=== PATIENT | female | born 1960 | race Caucasian/White ===

== ENCOUNTER 2020-08-28 00:20 | Observation (INO) | payer OTHER, SELFPAY ==
[2020-08-28] VITALS (14 sets, daily range): BP systolic 95–152; BP diastolic 56–83; PULSE 54–70; RESP 12–18; TEMP 36.7–37.1; O2SAT 95–99; BMI 31.6; BMI 29.9
--- NOTE | 2020-08-28 00:27 | ED.RN ---
NO OLD EKGS IN MUSE
--- NOTE | 2020-08-28 00:38 | CT_ITS ---
STUDY: CTA CHEST REASON FOR EXAM: Female, 60 years old. PE RADIATION DOSAGE (If Supplied By Facility): CTDIvol = ( 10.48 ) mGy, DLP = ( 367.32 ) mGycm TECHNIQUE: The examination was performed with the intravenous administration of IV 100mL Isovue-370. Post-processing of the angiographic images was performed, with multiplanar reformation and 3D reconstruction. Individualized dose optimization techniques were used for this CT. COMPARISON: None. FINDINGS: Normal enhancement of the main pulmonary artery and right and left pulmonary arteries. Normal enhancement of the bilateral peripheral pulmonary arteries. There is no demonstrated pulmonary embolism. Normal thoracic aorta and visualized great vessels. There is no demonstrated aortic dissection. Normal heart and pericardium. Normal mediastinum. Normal hilar regions. Normal visualized trachea and bronchi. The lungs are well expanded. Normal pulmonary parenchyma. Normal pleura. Normal chest wall structures. Normal osseous structures. Normal visualized upper abdomen. CT/CTA Chest W/WO Contrast IMPRESSION: Normal CTA chest examination, without a demonstrated pulmonary embolism or arterial dissection. Lungs are essentially clear. Electronically Signed: Alli Lopez DO at 2:10 EDT Tel , Service support ,
--- NOTE | 2020-08-28 00:39 | EKG12_ITS ---
Test Reason : CP Blood Pressure : / mmHG Vent. Rate : 053 BPM Atrial Rate : 053 BPM P-R Int : 152 ms QRS Dur : 072 ms QT Int : 496 ms P-R-T Axes : 040 -34 -24 degrees QTc Int : 465 ms Sinus bradycardia Left axis deviation Nonspecific T wave abnormality Prolonged QT Abnormal ECG Confirmed by GRABIEL FARIA, TIARRA ([id number]), school photograph editor SEJAL NIEVES ([id number]) on 08/29/2020 9:10:41 AM Referred By: LISA Confirmed By:TIARRA SPAIN MD
[2020-08-28 00:54] LABS: Absolute Neutrophil Count 8.8 X10^3/uL (2.0-7.7); Basophil# 0.03 X10^3/uL; Basophil% 0.3 % (0-1); Eosinophil# 0.02 X10^3/uL; Eosinophils% 0.2 % (0-5); Hematocrit 37.2 % (37-47); Lymphocyte % 9.7 % (19-41); Mean Corp Hgb Conc 32.3 g/dL (32-36); Mean Corpuscular Hgb 29.8 pg (27.0-32.0); Mean Corpuscular Volume 92.3 fL (81-99); Monocyte# 0.49 X10^3/uL; Monocyte% 4.7 % (0-10); NRBC Flagged by Analyzer 0 % (0-5); Neutrophil # 8.78 X10^3/uL (2.7-7.7); Neutrophil % 84.7 % (47-70); Platelet Count 386 K/mm3 (150-450); RBC Distribution Width CV 13.9 % (11.6-14.6); RBC Distribution Width SD 47.4 fl (35.1-43.9); Red Blood Count 4.03 M/mm3 (4.2-5.4); White Blood Count 10.4 K/mm3 (4.4-11.0)
--- NOTE | 2020-08-28 00:55 | ED.VIS.CHEST ---
HPI History of Present Illness Chief Complaint: Chest Pain Narrative Narrative: Patient presents with chest pain. 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 She recently had a visit to an emergency department in [place], she apparently had unremarkable cardiac work-up she was told to get an outpatient stress test. She has no back pain or tearing sensation she has no lower extremity edema or calf pain. She has no radiation of the pain. The pain starts in the epigastrium and does move somewhat in the chest. [facility] Medical History (Updated 08/28/20 @ 01:[address] Abdon Garrett MD) Chest pain CPAP (continuous positive airway pressure) dependence Depression Migraines Sleep apnea Home Medications esomeprazole magnesium [Nexium] 20 mg PO DAILY 08/28/20 [History Last Taken 08/27/20] fluoxetine 20 mg PO BID 08/28/20 [History Last Taken Unknown] Allergy/AdvReac Type Severity Reaction Status Date / Time No Known Allergies Allergy Verified 08/28/20 00:21 Social History Smoking Status: Never smoker ROS ROS ED ROS Narrative Past medical history: Reviewed, unremarkable Medications: Reviewed Social history: Noncontributory Family history: She has a strong family history of diabetes and cardiac disease. Review of systems: All systems negative except as indicated General: No fever Eyes: No visual changes ENT: No upper airway congestion, normal voice Neck: No neck pain Cardiovascular: Chest pain as in HPI Respiratory: No shortness of breath or cough Gastrointestinal: No abdominal pain, nausea vomiting or diarrhea Genitourinary: No dysuria Musculoskeletal: Denies myalgias no difficulty with ambulation Skin: No rash Neurological: No memory loss, confusion or any focal weakness Psych: No recent behavioral changes Hematologic: No easy bleeding or easy bruising EXAM Physical Exam Narrative Exam Narrative: Physical exam General: Well nourished, Well developed, No Acute Distress Head: Normocephalic, Atraumatic Eyes: Conjunctiva not pale ENT: Moist mucous membranes Neck: Supple, Nontender, No lymphadenopathy Cardiovascular: Regular rate, Regular rhythm. Some chest wall pain Respiratory: No distress, CTA bilaterally Abdomen: Soft, Nontender, Nondistended Back: Nontender, Normal Inspection. Negative for: CVA tenderness Extremities: Nontender, No edema Skin: Normal color, No rash Neurological: Alert, Normal Strength, Normal Sensation Psychological: Normal affect Const Vital Signs: 08/28/20 00:23 08/28/20 00:29 08/28/20 00:40 Temperature 98.1 F Temperature Source Oral Pulse Rate 59 L Respiratory Rate 18 Respiratory Effort Normal Non-Labored Respiratory Pattern Normal Blood Pressure 132/78 H Blood Pressure Mean 96 Pulse Ox 99 Oxygen Delivery Method Room Air Room Air 08/28/20 01:24 Temperature Temperature Source Pulse Rate 58 L Respiratory Rate 16 Respiratory Effort Respiratory Pattern Blood Pressure 129/81 H Blood Pressure Mean 97 Pulse Ox 98 Oxygen Delivery Method Room Air MDM MDM MDM Narrative Medical decision making narrative: Patient has a normal work-up however because risk factors second visit to the ED I will admit her for stress test in the morning. Lab Data Labs: Laboratory Results - last 24 hr 08/28/20 08/28/20 00:50 00:50 WBC 10.4 RBC 4.03 L Hgb 12.0 Hct 37.2 MCV 92.3 MCH 29.8 MCHC 32.3 RDW Std Deviation 47.4 H RDW Coeff of Michelle 13.9 Plt Count 386 MPV 10.0 Immature Gran % (Auto) 0.400 Neut % (Auto) 84.7 H Lymph % (Auto) 9.[address] [place] % (Auto) 4.7 Eos % (Auto) 0.2 Baso % (Auto) 0.3 Absolute Neuts (auto) 8.8 H Absolute Lymphs (auto) 1.00 Nucleated RBC % 0 Sodium 139 Potassium 3.3 L Chloride 109 H Carbon Dioxide 22.0 Anion Gap 8 BUN 21 H Creatinine 0.95 Estim Creat Clear Calc 47.52 Est GFR (MDRD) Af Amer 77 Est GFR (MDRD) Non-Af 64 BUN/Creatinine Ratio 22.1 H Glucose 137 H Calcium 9.1 Troponin I < 0.015 EKG Initial EKG: Comments: Sinus rhythm with a rate of 53. Normal TN interval. QTC is 465. T wave abnormality in the precordial leads. Otherwise unremarkable EKG Interpreted by emergency doctor Discharge Plan Triage Chief Complaint: Chest Pain ED Provider: Abdon Garrett Dx/Rx/DC Orders Clinical Impression: Chest pain Prescriptions: No Action esomeprazole magnesium [Nexium] 20 mg Capsule,Delayed Release(Dr/Ec) 20 mg PO DAILY RF: 0 fluoxetine 20 mg Capsule 20 mg PO BID RF: 0 Primary Care Provider: Donna Roth Referrals: Donna Roth [Primary Care Provider] - Disposition Disposition: Acute Care Hospital [facility]
[2020-08-28 01:11] LABS: Anion Gap 8 (5-15); BUN 21 mg/dL (7-18); BUN/Creat Ratio 22.1 RATIO (10-20); Calcium,Total 9.1 mg/dL (8.5-10.1); Chloride 109 mmol/L (98-107); Creatinine, Serum 0.95 mg/dL (0.55-1.02); EST Glomerular Filtration Rate 64 mL/min (>60); Est Glom Filt Rate - Afr Amer 77 mL/min (>60); Estimated Creatinine Clearance 47.52 ml/min; Glucose 137 mg/dL (74-106); Potassium 3.3 mmol/L (3.5-5.1); Sodium Level 139 mmol/L (136-145)
--- NOTE | 2020-08-28 01:52 | PCM.HP.STD ---
HPI - General HPI Narrative NKECHI BEDOYA, is a 60 F who presents to the ER with chest pain. Onset of this pain began 3 days ago when she sought medical care at the [facility] and was sent from the emergency room after 2 negative troponins. The patient states she has a history of a negative stress test approximately 2 years ago. 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 No shortness of breath no nausea or vomiting or diarrhea no fevers or chills. Admission for rule out cardiac etiology for chest pain was requested by ER physician. [facility] Medical History (Updated 08/28/20 @ 01:[address] Abdon Garrett MD) Chest pain CPAP (continuous positive airway pressure) dependence Depression Migraines Sleep apnea Home Medications esomeprazole magnesium [Nexium] 20 mg PO DAILY 08/28/20 [History Last Taken 08/27/20] fluoxetine 20 mg PO BID 08/28/20 [History Last Taken Unknown] Allergy/AdvReac Type Severity Reaction Status Date / Time No Known Allergies Allergy Verified 08/28/20 00:21 Social History Smoking Status: Never smoker ROS Constitutional Constitutional: Denies chills Eyes Eyes: Denies change in vision ENT HEENT: Denies abnormal hearing Cardiovascular Cardiovascular: Reports chest pain Respiratory/Chest Respiratory/Chest: Denies cough Gastrointestinal Gastrointestinal: Denies abdominal pain Genitourinary Genitourinary: Denies dysuria Musculoskeletal Musculoskeletal: Denies back pain Integumentary Integumentary: Denies lesions Neurologic Neurologic: Denies abnormal gait Psychiatric Psychiatric: Denies anxiety Vital Signs Vital Signs Vital Signs: 08/28/20 00:23 08/28/20 00:29 08/28/20 00:40 Temperature 98.1 F Temperature Source Oral Pulse Rate 59 L Respiratory Rate 18 Respiratory Effort Normal Non-Labored Respiratory Pattern Normal Blood Pressure 132/78 H Blood Pressure Mean 96 Pulse Ox 99 Oxygen Delivery Method Room Air Room Air 08/28/20 01:24 Temperature Temperature Source Pulse Rate 58 L Respiratory Rate 16 Respiratory Effort Respiratory Pattern Blood Pressure 129/81 H Blood Pressure Mean 97 Pulse Ox 98 Oxygen Delivery Method Room Air Lab / Micro Data Result Diagrams: 08/28/20 00:50 08/28/20 00:50 Labs: Laboratory Results - last 24 hr 05/11/21 05/11/21 00:50 00:50 WBC 10.4 RBC 4.03 L Hgb 12.0 Hct 37.2 MCV 92.3 MCH 29.8 MCHC 32.3 RDW Std Deviation 47.4 H RDW Coeff of Michelle 13.9 Plt Count 386 MPV 10.0 Immature Gran % (Auto) 0.400 Neut % (Auto) 84.7 H Lymph % (Auto) 9.7 L [place] % (Auto) 4.7 Eos % (Auto) 0.2 Baso % (Auto) 0.3 Absolute Neuts (auto) 8.8 H Absolute Lymphs (auto) 1.00 Nucleated RBC % 0 Sodium 139 Potassium 3.3 L Chloride 109 H Carbon Dioxide 22.0 Anion Gap 8 BUN 21 H Creatinine 0.95 Estim Creat Clear Calc 47.52 Est GFR (MDRD) Af Amer 77 Est GFR (MDRD) Non-Af 64 BUN/Creatinine Ratio 22.1 H Glucose 137 H Calcium 9.1 Troponin I < 0.015 Assessment & Plan Assessment/Plan (1) Chest pain: PLAN: Plan 1. Chest pain?admit patient progressive care unit, cycle cardiac enzymes, morphine, oxygen, nitroglycerin, aspirin as needed, will set up nuclear exercise stress test in the morning. 2. DVT prophylaxis?low molecular weight heparin Visit Charges OBSV E&M: 10318 Initial observation care L2
[2020-08-28] MEDS: Ondansetron 4 MG/2 ML Vial IV (03:45)
[2020-08-28] MEDS: Nitroglycerin (INPATIENT USE) 0.4 MG TAB.SUBL SL ×3 (04:12→04:25)
[2020-08-28] MEDS: proCHLORPERazine 10 MG/2 ML Vial IV (04:47)
[2020-08-28] MEDS: 0.9% Saline Lock 10 ML Syringe IV ×2 (04:49→14:05)
[2020-08-28 04:56] LABS: Anion Gap 7 (5-15); BUN 19 mg/dL (7-18); BUN/Creat Ratio 23.4 RATIO (10-20); Calcium,Total 8.7 mg/dL (8.5-10.1); Chloride 107 mmol/L (98-107); Cholesterol 236 mg/dL (200); Creatinine, Serum 0.81 mg/dL (0.55-1.02); EST Glomerular Filtration Rate 76 mL/min (>60); Est Glom Filt Rate - Afr Amer 92 mL/min (>60); Estimated Creatinine Clearance 55.73 ml/min; Glucose 109 mg/dL (74-106); High Density Lipoprotein 65 mg/dL; Potassium 3.6 mmol/L (3.5-5.1); Sodium Level 140 mmol/L (136-145); Triglycerides 61 mg/dL; Very Low Density Lipoprotein 12 mg/dL (5-40)
--- NOTE | 2020-08-28 05:53 | EKG12_ITS ---
Test Reason : AM EKG Blood Pressure : / mmHG Vent. Rate : 058 BPM Atrial Rate : 058 BPM P-R Int : 152 ms QRS Dur : 070 ms QT Int : 476 ms P-R-T Axes : 057 -35 -38 degrees QTc Int : 467 ms Sinus bradycardia Left axis deviation ST & T wave abnormality, consider anterior ischemia Prolonged QT Abnormal ECG Confirmed by GRABIEL FARIA, TIARRA ([id number]), film editor supervisor SEJAL NIEVES ([id number]) on 08/29/2020 9:20:45 AM Referred By: TIARRA LYONS Confirmed By:TIARRA SPAIN MD
--- NOTE | 2020-08-28 12:33 | STRESSREP_ITS ---
Stress Test Report Date: 08-28-2020 Procedure: Exercise tolerance test/imaging study Indications: Chest pain Consent: Per the patient Procedure: The patient exercised on a Brando protocol for 5 minutes and 47 seconds completing Stage I and 2 minutes and 47 seconds of Stage II achieving a peak heart rate of 133 bpm (83% predicted maximal heart rate) with a peak blood pressure 144/80 mmHg and a peak MET capacity of 7 METs. The baseline ECG demonstrated sinus rhythm; low voltage QRS; nonspecific T wave abnormality. The peak exercise ECG demonstrated no obvious ECG changes. There were no cardiac dysrhythmias pretest, during exercise, or recovery. The functional capacity was considered average. There was no complaint of chest discomfort during exercise or recovery. The examination was discontinued secondary to fatigue. Impression: 1. Technically adequate (percent predicted maximal heart rate greater than 85%) exercise tolerance test 2. Peak exercise ECG with no obvious ECG changes 3. There were no cardiac dysrhythmias pretest, during exercise, or recovery 4. Nuclear images pending Myocardial perfusion imaging study: Technique: The patient was injected with 12.0 mCi of technetium 99m Cardiolite and subsequently rest SPECT Cardiolite nuclear imaging was obtained in the horizontal long, vertical long, and short axis views. The patient exercised on a Brando protocol for 5 minutes and 47 seconds completing Stage I and 2 minutes and 47 seconds of Stage II achieving a peak heart rate of 133 bpm (83% predicted maximal heart rate) with a peak blood pressure 144/80 mmHg and a peak MET capacity of 7 METs. The patient was injected with 33.3 mCi of technetium 99m Cardiolite and subsequently stress SPECT Cardiolite nuclear imaging was obtained in the horizontal long, vertical long, and short axis views. A gated Cardiolite study at peak stress was obtained. Interpretation: Rest and stress SPECT Cardiolite nuclear imaging status post realignment, normalization, and attenuation correction, demonstrates at rest the appearance of a small area of subtle diminished tracer uptake in the distal anterior segm ents which appear to improve/normalize following stress. There is end systolic thickening and brightening. The gated Cardiolite study demonstrates myocardial thickening and inward wall motion. The reported LVEF is 75%. Impression: 1. Rest and stress SPECT Cardiolite nuclear imaging demonstrate myocardial perfusion changes at rest which appear to improve/normalize following stress appearing compatible with shifting soft tissue attenuation/artifact with no myocardial perfusion changes considered diagnostic for associated stress-induced moderate ischemia. 2. The gated Cardiolite study reports an LVEF of 75%. This note was generated with [employer] software. It may contain incorrect words, spelling, and punctuation that were not noted in checking the note before signing.
--- NOTE | 2020-08-28 13:05 | PCM.DC ---
Discharge Instructions Diet Discharge Diet: No restrictions Activity Discharge Activity: Return to Normal Activity Weight Bearing Status: Full weight bearing Follow Up Care Test Results: Test results from this visit will be discussed in further detail at your follow-up appointment, if applicable. Discharge Plan Admission Admit Date/Time: 08/28/20 02:09 Primary Reason for Your Visit: chest pain Attending Provider: Bigg Field Primary Care Provider: Donna Roth Instructions Patient Instructions: ED Chest Pain, Noncardiac Discharge Orders/Prescriptions Prescriptions: Continued esomeprazole magnesium [Nexium] 20 mg Capsule,Delayed Release(Dr/Ec) 20 mg PO DAILY RF: 0 fluoxetine 20 mg Capsule 20 mg PO BID RF: 0 Referrals / Follow Up: Donna Roth [Primary Care Provider] - In 1 Week Disposition Disposition (needs filled in before D/C Order can be placed): Home, self care
--- NOTE | 2020-08-28 14:01 | CASEMGMT ---
SW met w/pt in room briefly to give resources, as pt is listed as self pay. Pt confirms is self pay. SW gave pt information on 211, [facility] assist, list of [facility] Resources, prescription assist programs, dental clinics, [employer], and Jenny Sinha. No further needs, pt home today. YOSELIN Leach
--- NOTE | 2020-08-31 08:13 | DS.PCM_ITS ---
Providers Date of Admission: 08/28/20 Date of Discharge: 08/28/20 Primary Care Physician: Donna Roth Reason For Visit: CHESST PAIN Diagnosis Discharge Diagnosis (1) Chest pain: Status: Acute Code(s): R07.9 - Chest pain, unspecified Plan: 1. Musculoskeletal chest pain #2 GERD #3 chronic depression #4 obstructive sleep apnea Medications at Discharge Home Medications esomeprazole magnesium [Nexium] 20 mg PO DAILY 08/28/20 fluoxetine 20 mg PO BID 08/28/20 Hospital Course Operations None Procedures Nuclear stress test Summary of Care Provided Minutes Spent on Discharge: 30 Hospital Course: This 60-year-old white female was seen in the emergency room at [facility] with chief complaint of chest pain, work-up in the emergency room including cardiac enzymes was unremarkable. Chest x-ray did not show any acute process. Patient was placed and observation status on MedSurg 2, serial cardiac enzymes remained normal, patient underwent a nuclear stress test that was negative for reversible ischemia. On 08/28/2020, patient was seen and examined: On examination she appeared in good health and spirits, she does not appear to be in any distress. Vital signs as documented. Skin warm and dry and without overt rashes. Neck without JVD, thyroid appears normal, trachea is midline, neck is supple. Lungs clear, normal air movement was noted. Heart exam notable for regular rhythm, normal sounds and absence of murmurs, rubs or gallops. Abdomen unremarkable and without evidence of organomegaly, masses, or abdominal aortic enlargement, bowel sounds are present in all 4 quadrants, no abdominal tenderness was noted. Extremities nonedematous, no cyanosis was noted, no clubbing was noted. Neuro: Cranial nerves II through XII are grossly intact, no focal motor deficits were noted, sensation to light touch and pinprick is intact, motor exam 5/5 throughout. Psych: Patient is alert and oriented x3, she does not appear anxious or dep ressed, she does not appear agitated. Patient was discharged home in stable condition on 08/28/2020. ABG / Lab / Microbiology Data Result Diagrams: 08/28/20 00:50 08/28/20 04:30 D/C Instructions Discharge Diet: No restrictions Discharge Activity: Return to Normal Activity Weight Bearing Status: Full weight bearing Meaningful Use Info Meaningful Use Diagnoses (Choose all that apply): None applicable Discharge Plan Admission Admit Date/Time: 08/28/20 02:09 Primary Reason for Your Visit: chest pain Attending Provider: Bigg Field Primary Care Provider: Donna Roth Instructions Patient Instructions: ED Chest Pain, Noncardiac Discharge Orders/Prescriptions Prescriptions: Continued esomeprazole magnesium [Nexium] 20 mg Capsule,Delayed Release(Dr/Ec) 20 mg PO DAILY RF: 0 fluoxetine 20 mg Capsule 20 mg PO BID RF: 0 Referrals / Follow Up: Donna Roth [Primary Care Provider] - In 1 Week Disposition Disposition (needs filled in before D/C Order can be placed): Home, self care Visit Charges OBSV E&M: 43872 Observ/hosp same date L3
== END 2020-08-28 14:05 | disposition home or self-care (01) ==
LOC: ED 01:58 → ICU 04:45
PROVIDERS: Admitting Provider Family Medicine; Emergency Provider Emergency Medicine; PCP Family Medicine; Visit Provider Internal Medicine
DX: R07.89 Other chest pain (principal); G47.33 Obstructive sleep apnea (adult) (pediatric); R07.2 Precordial pain; F32.9 Major depressive disorder, single episode, unspecified; Z79.899 Other long term (current) drug therapy; K21.9 Gastro-esophageal reflux disease without esophagitis; R00.1 Bradycardia, unspecified; R94.31 Abnormal electrocardiogram [ECG] [EKG]
CPT/HCPCS: 71275; 78452; 80048; 80061; 84484; 85025; 93005; 93017; 96374; 96375; 99218; 99285; A9500; Q9967; A4216; G0378; J2405

== ENCOUNTER 2021-04-28 20:09 | Emergency (ER) | payer OTHER, SELFPAY ==
[2021-04-28 20:09] VITALS: BP 111/72; PULSE 59; RESP 15; TEMP 35.9; O2SAT 100; BMI 28.3
--- NOTE | 2021-04-28 20:40 | EKG12_ITS ---
Test Reason : SYNCOPE Blood Pressure : / mmHG Vent. Rate : 061 BPM Atrial Rate : 061 BPM P-R Int : 152 ms QRS Dur : 080 ms QT Int : 434 ms P-R-T Axes : 072 -47 068 degrees QTc Int : 436 ms Normal sinus rhythm Left anterior fascicular block T wave abnormality, consider anterior ischemia Abnormal ECG Confirmed by GRABIEL FARIA, TIARRA ([id number]), clinical editor ARDEN CHAVEZ ([id number]) on 04/30/2021 1:39:11 PM Referred By: BEN Confirmed By:TIARRA SPAIN MD
--- NOTE | 2021-04-28 20:41 | EDS_ITS ---
HPI History of Present Illness Chief Complaint: Syncope Informant: patient Narrative Narrative: 60-year-old female presenting to the emergency department following a syncopal/near syncopal episode. Patient states that she has been doing quite well today. She sat down and ate a [employer] sandwich. She began to have some abdominal discomfort and felt that she may have diarrhea. She went to the bathroom and had a lot of nausea and vomiting as well as some diarrhea. She started to feel lightheaded and started to go towards the door when she collapsed. She stood up again and collapsed again. During which point she states that she struck her right anterior wrist and now has tingling in her fingers. She states that her abdominal pain her nausea and her diarrhea sensation has resolved. She notes that EMS told her her heart rate and blood pressure were low and these have also resolved. 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 [facility] Medical History Chest pain CPAP (continuous positive airway pressure) dependence Depression Migraines Sleep apnea Home Medications fluoxetine 20 mg PO BID 08/28/20 [History Last Taken Unknown] Allergy/AdvReac Type Severity Reaction Status Date / Time No Known Allergies Allergy Verified 04/28/21 20:15 Social History Smoking Status: Never smoker [facility] ED Constitutional Constitutional ED: Denies chills or weight loss Eyes Eyes: Denies change in vision or diplopia ENT ENT ED: Denies ear pain, rhinorrhea or sore throat Cardiovascular Cardiovascular: Reports other Details: Syncope ; Denies chest pain, orthopnea, palpitations or racing heartbeat Respiratory/Chest Respiratory/Chest: Denies cough, dyspnea or orthopnea Gastrointestinal Gastrointestinal: Reports abdominal pain, diarrhea, nausea and vomiting Genitourinary Genitourinary ED: Denies dysuria, hematuria or urinary frequency Musculoskeletal Musculoskeletal: Denies arthralgias or myalgias Integumentary Denies abscess or rash Neurologic Neurologic: Denies headache(s) or weakness Psychiatric Psychiatric: Denies anxiety, depression, suicidal ideation or suicidal thoughts Endocrine Endocrinology: Denies polydipsia, polyphagia or polyuria Allergic/Immunologic Allergic/Immunologic ED: Denies mouth swelling, tongue swelling or urticaria EXAM Physical Exam Const Vital Signs: 04/28/21 20:09 04/28/21 20:15 Temperature 96.6 F L Temperature Source Temporal Pulse Rate 59 L Respiratory Rate 15 Respiratory Effort Normal Non-Labored Blood Pressure 111/72 Blood Pressure Mean 85 Pulse Ox 100 Oxygen Delivery Method Room Air Positive well nourished and well developed General Appearance ED: well developed HEENT Reports normocephalic, head/scalp atraumatic and moist mucous membranes Eyes PERRL and EOMs intact bilaterally Neck no lymphadenopathy, supple and no JVD Resp normal respiratory effort and clear to auscultation bilaterally Cardio regular rate, regular rhythm and no murmurs GI normal to inspection, nondistended, normoactive bowel sounds and non-tender Palpation: soft Back/Spine no CVA tenderness and normal ROM Extremity normal to inspection General Extremety ED: Negative for edema General Extremity: Negative for edema Neuro oriented x3 and CN's II-XII intact bilaterally Sensorium / Orientation: alert Motor Exam: strength 5/5 throughout Psych mental status grossly normal Mood & Affect: Negative for depressed or tearful Skin no rashes or lesions noted and no wounds MDM MDM MDM Narrative Medical decision making narrative: Basic blood work negative. Patient had no events on the monitor. She is feeling better. I believe that this was a vasovagal reaction. At this point patient will be discharged home. Return if worsening or concerns Lab Data Attestation: I reviewed the patient's lab results. Labs: Laboratory Results - last 24 hr 04/28/21 04/28/21 20:21 20:21 WBC 11.6 H RBC 4.26 Hgb 13.3 Hct 39.8 MCV 93.4 MCH 31.2 MCHC 33.4 RDW Std Deviation 45.2 H RDW Coeff of Michelle 13.2 Plt Count 395 MPV 10.2 Immature Gran % (Auto) 0.500 Neut % (Auto) 78.3 H Lymph % (Auto) 16.4 L [place] % (Auto) 3.9 Eos % (Auto) 0.6 Baso % (Auto) 0.3 Absolute Neuts (auto) 9.1 H Absolute Lymphs (auto) 1.90 Nucleated RBC % 0 Sodium 140 Potassium 4.2 Chloride 108 H Carbon Dioxide 22.0 Anion Gap 10 BUN 26 H Creatinine 1.22 H Estim Creat Clear Calc 38.78 Est GFR (MDRD) Af Amer 58 L Est GFR (MDRD) Non-Af 48 L BUN/Creatinine Ratio 21.3 H Glucose 192 H Calcium 9.6 Total Bilirubin 0.20 AST 22 ALT 27 Alkaline Phosphatase 71 Total Protein 7.1 Albumin 3.2 Globulin 3.9 Albumin/Globulin Ratio 0.8 L Lipase 129 EKG Initial EKG: Attestation: I personally reviewed and interpreted this EKG as follows: Comments: Normal sinus rhythm with a ventricular rate of 61 bpm Discharge Plan Triage Chief Complaint: Syncope ED Provider: Albert Walker Dx/Rx/DC Orders Clinical Impression: Vasovagal syncope, Vomiting and diarrhea Instructions: ED Fainting, Vagal Reaction, ED Vomiting (Adult) Prescriptions: No Action fluoxetine 20 mg Capsule 20 mg PO BID RF: 0 Primary Care Provider: Donna Roth Referrals: Donna Roth [Primary Care Provider] - 3-5 Days if not improving Disposition Disposition: Home, Self Care
[2021-04-28] MEDS: 0.9% Normal Saline 1,000 ML 1000 ML IV (20:48)
[2021-04-28] MEDS: Ondansetron 4 MG/2 ML Vial IV (20:49)
[2021-04-28 20:51] LABS: Absolute Neutrophil Count 9.1 X10^3/uL (2.0-7.7); Basophil# 0.04 X10^3/uL; Basophil% 0.3 % (0-1); Eosinophil# 0.07 X10^3/uL; Eosinophils% 0.6 % (0-5); Hematocrit 39.8 % (37-47); Hemoglobin 13.3 g/dL (12.0-15.0); Lymphocyte % 16.4 % (19-41); Mean Corp Hgb Conc 33.4 g/dL (32-36); Mean Corpuscular Hgb 31.2 pg (27.0-32.0); Mean Corpuscular Volume 93.4 fL (81-99); Mean Platelet Vol. 10.2 fl (6.2-12.0); Monocyte# 0.45 X10^3/uL; Monocyte% 3.9 % (0-10); NRBC Flagged by Analyzer 0 % (0-5); Neutrophil % 78.3 % (47-70); Platelet Count 395 K/mm3 (150-450); RBC Distribution Width CV 13.2 % (11.6-14.6); RBC Distribution Width SD 45.2 fl (35.1-43.9); Red Blood Count 4.26 M/mm3 (4.2-5.4); White Blood Count 11.6 K/mm3 (4.4-11.0)
[2021-04-28 21:04] LABS: ALB/GLOB Ratio 0.8 RATIO (0.9-2.4); AST(SGOT) 22 U/L (15-37); Alanine Aminotransfer ALT/SGPT 27 U/L (13-56); Albumin, Serum 3.2 g/dL (3.2-5.0); Alkaline Phosphatase 71 U/L (45-117); Anion Gap 10 (5-15); BUN 26 mg/dL (7-18); BUN/Creat Ratio 21.3 RATIO (10-20); Calcium,Total 9.6 mg/dL (8.5-10.1); Chloride 108 mmol/L (98-107); Creatinine, Serum 1.22 mg/dL (0.55-1.02); EST Glomerular Filtration Rate 48 mL/min (>60); Est Glom Filt Rate - Afr Amer 58 mL/min (>60); Estimated Creatinine Clearance 38.78 ml/min; Globulin 3.9 g/dL (2.2-4.2); Glucose 192 mg/dL (74-106); Lipase 129 U/L (73-393); Potassium 4.2 mmol/L (3.5-5.1); Protein, Total 7.1 g/dL (6.4-8.2); Sodium Level 140 mmol/L (136-145)
[2021-04-28 21:44] VITALS: BP 116/76; PULSE 73; RESP 18; O2SAT 98
== END 2021-04-28 21:49 | disposition home or self-care (01) ==
PROVIDERS: Emergency Provider Emergency Medicine; PCP Family Medicine; Visit Provider Emergency Medicine
DX: R55 Syncope and collapse (principal); R11.2 Nausea with vomiting, unspecified; R19.7 Diarrhea, unspecified
CPT/HCPCS: 80053; 83690; 85025; 87426; 93005; 96361; 96374; 99285; J2405

== ENCOUNTER 2021-06-03 23:39 | Emergency (ER) | payer OTHER, SELFPAY ==
[2021-06-03 23:42] VITALS: BP 127/97; BP 96/77; PULSE 56; PULSE 57; RESP 16; TEMP 36.2; O2SAT 100; O2SAT 98; BMI 28.4
[2021-06-04 00:16] VITALS: O2SAT 95
--- NOTE | 2021-06-04 00:16 | EKG12_ITS ---
Test Reason : DYSRHYTHMIA Blood Pressure : / mmHG Vent. Rate : 053 BPM Atrial Rate : 053 BPM P-R Int : 114 ms QRS Dur : 076 ms QT Int : 480 ms P-R-T Axes : 059 -39 -53 degrees QTc Int : 450 ms Sinus bradycardia Left axis deviation Low voltage QRS Nonspecific ST and T wave abnormality Abnormal ECG Confirmed by GRABIEL FARIA, TIARRA ([id number]), editor greeting card SEJAL NIEVES ([id number]) on 06/05/2021 11:47:52 AM Referred By: REZA Confirmed By:TIARRA SPAIN MD
--- NOTE | 2021-06-04 00:16 | RAD_ITS ---
STUDY: X-RAY CHEST REASON FOR EXAM: Female, 60 years old. chest pain TECHNIQUE: Single AP portable view of the chest. COMPARISON: None. FINDINGS: The lungs are clear and expanded. There is no demonstrated pleural abnormality. Normal size heart. Normal mediastinum and nicole. Normal visualized pulmonary arteries. Normal visualized aortic arch and descending thoracic aorta. Normal visualized thoracic spine. Normal visualized ribs, clavicles, and shoulders. There is no demonstrated abnormality of the visualized soft tissue structures of the upper abdomen. RAD/Chest 1 View (Portable) IMPRESSION: Normal x-ray examination of the chest. Electronically Signed: Jazmine Bolton MD at 0:33 EST ,
--- NOTE | 2021-06-04 00:17 | EDS_ITS ---
HPI History of Present Illness Chief Complaint: Syncope Informant: patient and EMS Onset/Context/Timing Onset: Today Worsened By: Nothing Relieved By: Nothing Associated Symptoms: Positive for Nausea and Dyspnea Narrative Narrative: Patient states about 4 hours ago she started having chest discomfort that is nonpleuritic, tightness, retrosternal without radiation. With having the discomfort she felt a little dyspneic. She has had this happen before, and in the past when she goes and lies down it helps and so she did that. She took a nap and then woke up with epigastric discomfort and nausea/vomiting. She continued to vomit a lot. This made her feel lightheaded. Vomiting was nonbloody nonbilious. She got up and passed out, she crawled out to a different room to get her boyfriend and states she passed out again. She says then EMS showed up. All of this has happened before. She was here in April after almost identical events, she has had negative cardiac work-ups, she takes [id number] Nexium for GERD and attributes all of this is likely being related, and she had a negative stress test less than 12 months ago. She is a non-smoker. EMS treated her with IV Zofran and some fluids, she is now asymptomatic. They also did an EKG which looks identical to ours, see below. Prior Similar Symptoms: Yes CVD Risk Factors: Positive for Family History 1' </=55; Negative for Hypertension, Diabetes, Hypercholesterolemia and Smoking PE Risk Factors: Negative for Recent Travel/Surgery, Recent Immobilization, Prior DVT or PE, Cancer and OCP + Smoking + >/=35 PFSH PFSH Medical History CPAP (continuous positive airway pressure) dependence Depression GERD (gastroesophageal reflux disease) Migraines Sleep apnea Home Medications fluoxetine 20 mg PO BID 08/28/20 [History Last Taken Unknown] Allergy/AdvReac Type Severity Reaction Status Date / Time No Known Allergies Allergy Verified 06/03/21 23:51 Social History Smoking Status: Never smoker ROS ROS ED Constitutional Constitutional ED: Denies chills or fever(s) Eyes Eyes: Denies change in vision or diplopia ENT ENT ED: Denies rhinorrhea or sore throat Cardiovascular Cardiovascular: Reports as per HPI and chest pain; Denies palpitations Respiratory/Chest Respiratory/Chest: Reports as per HPI and dyspnea; Denies cough Gastrointestinal Gastrointestinal: Reports as per HPI, abdominal pain, nausea and vomiting; Denies diarrhea Genitourinary Genitourinary ED: Denies dysuria or hematuria Musculoskeletal Musculoskeletal: Denies back pain or neck pain Integumentary Denies abscess or rash Neurologic Neurologic: Denies headache(s), paresthesias or weakness Psychiatric Psychiatric: Denies anxiety or suicidal thoughts EXAM Physical Exam Const Vital Signs: 06/03/21 23:42 06/03/21 23:54 06/04/21 00:16 Temperature 97.1 F L Temperature Source Temporal Pulse Rate 56 L Respiratory Rate 16 Respiratory Effort Normal Non-Labored Respiratory Pattern Normal Blood Pressure 96/77 Blood Pressure Mean 83 Pulse Ox 98 95 Oxygen Delivery Method Nasal Cannula Nasal Cannula Oxygen Flow Rate (L/min) 2 2 06/04/21 01:26 Temperature Temperature Source Pulse Rate 58 L Respiratory Rate 11 L Respiratory Effort Respiratory Pattern Blood Pressure 122/73 H Blood Pressure Mean 89 Pulse Ox 99 Oxygen Delivery Method Room Air Oxygen Flow Rate (L/min) Positive well nourished and well developed General Appearance ED: well developed and NAD HEENT Reports moist mucous membranes normocephalic and atraumatic Eyes PERRL and EOMs intact bilaterally Neck full ROM and supple Resp normal respiratory effort and clear to auscultation bilaterally Cardio regular rate, regular rhythm and no murmurs Rate: Negative for bradycardia or tachycardic GI non-tender and non-distended Auscultation: normoactive bowel sounds Palpation: soft Back/Spine no CVA tenderness General Back: other FROM Extremity normal to inspection General Extremety ED: Negative for edema, pulses abnormal or tenderness General Extremity: Negative for edema or pulses abnormal Neuro oriented x3, CN's II-XII intact bilaterally and no sensory deficits noted Sensorium / Orientation: awake and alert Motor Exam: strength 5/5 throughout Skin no rashes or lesions noted and no wounds Heart Score History: Moderately Suspicious ECG: Nonspecific Repolarization Risk Factors: 1 or 2 Risk Factors Troponin: </= Normal Limit Score: 3 MDM MDM MDM Narrative Medical decision making narrative: Labs are unremarkable including troponin. Her x-ray is normal. Her EKG is nonspecific, bradycardic when she first got here but that gradually improved, and she is asymptomatic with her heart rate in the 50s. She does not take any AV myla blockers. She has a left anterior fascicular block and nonspecific T wave flattening diffusely, but this is unchanged compared with her prior EKGs. Additionally, she had a similar episode that she was in the emergency department here with last August, she had CT angiography of the chest done showing no evidence of a pulmonary embolus or any other acute abnormality in the chest, so I do not think we need to rule her out for pulmonary embolus again now especially since she is bradycardic and does not have any signs or symptoms of a DVT or risk factors. Certainly possible this is all cardiac in etiology, differential includes a transient dysrhythmia, electrical block, or what I think more likely happened is that the discomfort and vomiting were more GI related, and in vomiting forcefully, she vagal'd. We monitored here in the emergency department, gave her some IV fluids, and did a 2-hour delta troponin which was also negative (both measurements < 3). She feels well now. I do not think she requires admission. She has a heart score 4, really mostly because of her stable nonspecific EKG and her age and the fact that she has family members with heart disease. With a negative stress test in the last 12 months I think she is stable to follow-up as an outpatient, she is in agreement with this. Lab Data Attestation: I reviewed the patient's lab results. Labs: Laboratory Results - last 24 hr 06/03/21 06/03/21 06/04/21 23:50 23:50 02:13 WBC 13.0 H RBC 4.31 Hgb 13.2 Hct 40.0 MCV 92.8 MCH 30.6 MCHC 33.0 RDW Std Deviation 44.1 H RDW Coeff of Michelle 12.8 Plt Count 392 MPV 10.1 Immature Gran % (Auto) 0.400 Neut % (Auto) 85.6 H Lymph % (Auto) 9.9 L [place] % (Auto) 3.5 Eos % (Auto) 0.3 Baso % (Auto) 0.3 Absolute Neuts (auto) 11.2 H Absolute Lymphs (auto) 1.29 Nucleated RBC % 0 Sodium 141 Potassium 3.9 Chloride 111 H Carbon Dioxide 21.0 Anion Gap 9 BUN 27 H Creatinine 1.11 H Estim Creat Clear Calc 42.63 Est GFR (MDRD) Af Amer 64 Est GFR (MDRD) Non-Af 53 L BUN/Creatinine Ratio 24.3 H Glucose 168 H Calcium 9.1 Troponin I High Sens < 3 L < 3 L Radiography Diagnostic Testing: Clinical Impression(s) from Imaging Studies Chest X-Ray 06/04/21 00:16 IMPRESSION: Normal x-ray examination of the chest. Electronically Signed: Jazmine Bolton MD at 0:33 EST , Rhythm Strip Rhythm Strip: Sinus Rhythm Rate: 71 Ectopy: None EKG Initial EKG: Attestation: I personally reviewed and interpreted this EKG as follows: Interpretation: Sinus Rhythm (53), No Acute Injury Pattern, LAFB and Non- Specific ST Changes (Diffuse T wave flattening with inversions in the precordium) Prior EKG tracings: available for review (04/2021) Prior: Unchanged Discharge Plan Triage Chief Complaint: Syncope ED Provider: Benitez Ken Dx/Rx/DC Orders Clinical Impression: Chest pain, Acute epigastric pain, Acute gastritis without hemorrhage, Vasovagal syncope Instructions: ED Chest Pain, Uncertain Cause, ED Fainting, Vagal Reaction Prescriptions: No Action fluoxetine 20 mg Capsule 20 mg PO BID RF: 0 Primary Care Provider: Donna Roth Referrals: Donna Roth [Primary Care Provider] - 3-5 Days (or when able to get appt) Disposition Disposition: Home, Self Care
[2021-06-04] MEDS: 0.9% Normal Saline 1,000 ML 150 ML IV (00:23)
[2021-06-04 00:38] LABS: Absolute Lymphocyte Count 1.29 X10^3/uL (0.83-4.51); Absolute Neutrophil Count 11.2 X10^3/uL (2.0-7.7); Basophil# 0.04 X10^3/uL; Basophil% 0.3 % (0-1); Eosinophil# 0.04 X10^3/uL; Eosinophils% 0.3 % (0-5); Hemoglobin 13.2 g/dL (12.0-15.0); Lymphocyte # 1.29 X10^3/ul (0.83-4.51); Lymphocyte % 9.9 % (19-41); Mean Corpuscular Hgb 30.6 pg (27.0-32.0); Mean Corpuscular Volume 92.8 fL (81-99); Mean Platelet Vol. 10.1 fl (6.2-12.0); Monocyte# 0.46 X10^3/uL; Monocyte% 3.5 % (0-10); NRBC Flagged by Analyzer 0 % (0-5); Neutrophil # 11.15 X10^3/uL (2.7-7.7); Neutrophil % 85.6 % (47-70); Platelet Count 392 K/mm3 (150-450); RBC Distribution Width CV 12.8 % (11.6-14.6); RBC Distribution Width SD 44.1 fl (35.1-43.9); Red Blood Count 4.31 M/mm3 (4.2-5.4)
[2021-06-04 00:53] LABS: Anion Gap 9 (5-15); BUN 27 mg/dL (7-18); BUN/Creat Ratio 24.3 RATIO (10-20); Calcium,Total 9.1 mg/dL (8.5-10.1); Chloride 111 mmol/L (98-107); Creatinine, Serum 1.11 mg/dL (0.55-1.02); EST Glomerular Filtration Rate 53 mL/min (>60); Est Glom Filt Rate - Afr Amer 64 mL/min (>60); Estimated Creatinine Clearance 42.63 ml/min; Glucose 168 mg/dL (74-106); Potassium 3.9 mmol/L (3.5-5.1); Sodium Level 141 mmol/L (136-145); Troponin-I HS < 3 pg/mL (3.0-54.0)
[2021-06-04 01:26] VITALS: BP 122/73; PULSE 58; RESP 11; O2SAT 99
[2021-06-04 02:47] LABS: Troponin-I HS < 3 pg/mL (3.0-54.0)
[2021-06-04 02:50] VITALS: BP 123/72; PULSE 62; RESP 12; O2SAT 98
== END 2021-06-04 03:00 | disposition home or self-care (01) ==
PROVIDERS: Emergency Provider Emergency Medicine; PCP Family Medicine; Visit Provider Emergency Medicine
DX: R07.9 Chest pain, unspecified (principal); R55 Syncope and collapse; R00.1 Bradycardia, unspecified; R10.13 Epigastric pain; R06.00 Dyspnea, unspecified; I44.4 Left anterior fascicular block; K29.00 Acute gastritis without bleeding; Z79.899 Other long term (current) drug therapy; K21.9 Gastro-esophageal reflux disease without esophagitis; F32.A Depression, unspecified; G47.30 Sleep apnea, unspecified
CPT/HCPCS: 71045; 80048; 84484; 85025; 93005; 99285

== ENCOUNTER 2021-08-23 01:15 | Emergency (ER) | payer OTHER, SELFPAY ==
[2021-08-23 01:16] VITALS: BP 129/77; PULSE 62; RESP 22; TEMP 36.5; O2SAT 100; BMI 27.3
--- NOTE | 2021-08-23 01:25 | EKG12_ITS ---
Test Reason : CP Blood Pressure : / mmHG Vent. Rate : 066 BPM Atrial Rate : 066 BPM P-R Int : 154 ms QRS Dur : 074 ms QT Int : 476 ms P-R-T Axes : 061 -50 -25 degrees QTc Int : 499 ms Normal sinus rhythm Left anterior fascicular block Nonspecific T wave abnormality Prolonged QT Abnormal ECG Confirmed by STAR FARIA, JESSICA ([id number]), supervising editor news reel SEJAL NIEVES ([id number]) on 08/26/2021 1:46:58 PM Referred By: LEELEE Confirmed By:JESSICA GRAVES MD
--- NOTE | 2021-08-23 01:34 | EX.ED.DYSGE1 ---
HPI History of Present Illness Chief Complaint: Abd Pain Narrative Narrative: Patient presents with via EMS with multiple somatic complaints ranging from chest pain, clamminess, and epigastric pain. She states she does have past medical history of GERD. She has had episodes in the past that are described more like panic attacks, but she feels epigastric pain and check sure that she is not having a heart attack. She states she last had an episode in May, then 3 weeks later had another episode. She has been having another attack that started at 6-6 30 last evening, greater than 7 hours ago. She states she began having midsternal chest pain and became very clammy. She briefly felt short of breath. Those symptoms have resolved. She began having epigastric pain and cramping which has also eased up. She had nausea and vomited twice without any blood in her emesis. She denies any diarrhea or other problems with bowel movements. No dysuria or hematuria. She states she has follow-up with her primary care physician for these episodes that have been happening since May, but has not been to see her yet. No exertional component. [facility] Medical History CPAP (continuous positive airway pressure) dependence Depression GERD (gastroesophageal reflux disease) Migraines Sleep apnea Home Medications fluoxetine 20 mg PO BID 08/28/20 [History Last Taken Unknown] Allergy/AdvReac Type Severity Reaction Status Date / Time No Known Allergies Allergy Verified 06/03/21 23:51 Social History Smoking Status: Never smoker ROS ROS ED ROS Narrative Constitutional: No fever, no chills. [place] clammy. HEENT: No sore throat. No neck pain. No loss of vision. No rhinorrhea. Cardiovascular: Positive chest pain. No palpitations. No pedal edema. Respiratory: No cough, mild shortness of breath-resolved. Abdominal: Positive epigastric abdominal pain. Positive nausea. 2 episodes of nonbloody vomiting. Genitourinary: No dysuria. No hematuria. Musculoskeletal: No myalgias. No arthralgias. Neurologic: No headaches. No dizziness. No lightheadedness. Skin: No rash. No change in color. Psychiatric: No depression. No anxiety. EXAM Physical Exam Narrative Exam Narrative: Afebrile. Vital signs noted. HEENT: Normocephalic. Atraumatic. PERRL, EOMI. Neck soft and supple. No point tenderness or step off. Cardiovascular: Regular rate and rhythm. No murmurs, rubs, or gallops appreciated. Respiratory: No tachypnea. Lungs clear to auscultation bilaterally. Gastrointestinal: Abdomen soft, nontender, with normoactive bowel sounds. No rebound or guarding. Neurological: Awake. Alert. Nonfocal, nonlateralizing. Skin: No rash. Normal color. No pallor. Musculoskeletal: No pedal edema. Full range of motion extremities. Const Vital Signs: 08/23/21 01:16 Temperature 97.7 F L Temperature Source Oral Pulse Rate 62 Respiratory Rate 22 H Blood Pressure 129/77 H Blood Pressure Mean 94 Pulse Ox 100 Oxygen Delivery Method Room Air MDM MDM MDM Narrative Medical decision making narrative: Chest pain and pancreatitis work-up was pursued given her epigastric pain. Her EKG demonstrates normal sinus rhythm at 66 bpm without ectopy or acute ST changes. No STEMI. No significant change from previous. Chest x-ray as read by myself/emergency physician shows no evidence of acute cardiopulmonary process, no pneumonia, no pneumothorax. CBC shows normal white count of 9.9, hemoglobin normal at 12.7 with hematocrit normal at 38.6. Electrolyte panel shows potassium slightly low at 3.3, lipase normal at 188. Chloride slightly low at 111. Glucose normal at 87. High-sensitivity troponin is less than 3. This is greater than a 3-hour troponin and hence I do feel that she has been ruled out by biomarkers for acute coronary syndrome/[place]. At this point in time, upon repeat examination, she is resting comfortably. Her vital signs appear normalized. There is no tachypnea. I do feel that part of her symptomatology may be related to panic attacks. She will be discharged to follow-up with her primary care physician. She states she has an appointment on Thursday, 3 days from now. Return instructions to the emergency department were reviewed. Disposition is discharged home in stable condition. Lab Data Attestation: I reviewed the patient's lab results. Labs: Laboratory Results - last 24 hr 08/23/21 08/23/21 01:37 01:37 WBC 9.9 RBC 4.15 L Hgb 12.7 Hct 38.6 MCV 93.0 MCH 30.6 MCHC 32.9 RDW Std Deviation 46.5 H RDW Coeff of Michelle 13.7 Plt Count 477 H MPV 9.8 Immature Gran % (Auto) 0.300 Neut % (Auto) 81.5 H Lymph % (Auto) 12.9 L [place] % (Auto) 4.5 Eos % (Auto) 0.4 Baso % (Auto) 0.4 Absolute Neuts (auto) 8.1 H Absolute Lymphs (auto) 1.28 Nucleated RBC % 0 Sodium 143 Potassium 3.3 L Chloride 111 H Carbon Dioxide 25.0 Anion Gap 7 BUN 28 H Creatinine 0.91 Estim Creat Clear Calc 51.35 Est GFR (MDRD) Af Amer 80 Est GFR (MDRD) Non-Af 66 BUN/Creatinine Ratio 30.6 H Glucose 87 Calcium 9.2 Total Bilirubin 0.20 AST 22 ALT 27 Alkaline Phosphatase 72 Troponin I High Sens < 3 L Total Protein 7.2 Albumin 3.4 Globulin 3.8 Albumin/Globulin Ratio 0.9 Lipase 188 Radiography Chest X-Ray - ED: Read by ED Physician Diagnostic Testing: Clinical Impression(s) from Imaging Studies Chest X-Ray 08/23/21 01:40 IMPRESSION: No acute cardiopulmonary process. Electronically Signed: Moris Huang MD at 1:58 EDT , Discharge Plan Triage Chief Complaint: Abd Pain ED Provider: Alexandr Wade Dx/Rx/DC Orders Clinical Impression: Chest pain, Epigastric pain, Panic attack Instructions: ED Chest Pain, Noncardiac, ED Panic Attack, ED Epigastric Pain Uncertain Cause Prescriptions: No Action fluoxetine 20 mg Capsule 20 mg PO BID RF: 0 Primary Care Provider: Donna Roth Referrals: Donna Roth [Primary Care Provider] - As soon as possible Disposition Disposition: Home, Self Care
--- NOTE | 2021-08-23 01:40 | RAD_ITS ---
STUDY: X-RAY CHEST REASON FOR EXAM: Female, 61 years old. chest pain TECHNIQUE: 1 view COMPARISON: 06/04/2021 FINDINGS: Cardiomediastinal silhouette is unremarkable. Costophrenic angles are sharp. Lungs are clear. The trachea is midline. There is no pneumothorax. The bones are grossly intact. RAD/Chest 1 View (Portable) IMPRESSION: No acute cardiopulmonary process. Electronically Signed: Moris Huang MD at 1:58 EDT ,
[2021-08-23 02:00] LABS: Absolute Lymphocyte Count 1.28 X10^3/uL (0.83-4.51); Absolute Neutrophil Count 8.1 X10^3/uL (2.0-7.7); Basophil# 0.04 X10^3/uL; Basophil% 0.4 % (0-1); Eosinophil# 0.04 X10^3/uL; Eosinophils% 0.4 % (0-5); Hematocrit 38.6 % (37-47); Hemoglobin 12.7 g/dL (12.0-15.0); Lymphocyte # 1.28 X10^3/ul (0.83-4.51); Lymphocyte % 12.9 % (19-41); Mean Corp Hgb Conc 32.9 g/dL (32-36); Mean Corpuscular Hgb 30.6 pg (27.0-32.0); Mean Platelet Vol. 9.8 fl (6.2-12.0); Monocyte# 0.45 X10^3/uL; Monocyte% 4.5 % (0-10); NRBC Flagged by Analyzer 0 % (0-5); Neutrophil % 81.5 % (47-70); Platelet Count 477 K/mm3 (150-450); RBC Distribution Width CV 13.7 % (11.6-14.6); RBC Distribution Width SD 46.5 fl (35.1-43.9); Red Blood Count 4.15 M/mm3 (4.2-5.4); White Blood Count 9.9 K/mm3 (4.4-11.0)
[2021-08-23 02:21] LABS: ALB/GLOB Ratio 0.9 RATIO (0.9-2.4); AST(SGOT) 22 U/L (15-37); Alanine Aminotransfer ALT/SGPT 27 U/L (13-56); Albumin, Serum 3.4 g/dL (3.2-5.0); Alkaline Phosphatase 72 U/L (45-117); Anion Gap 7 (5-15); BUN 28 mg/dL (7-18); BUN/Creat Ratio 30.6 RATIO (10-20); Calcium,Total 9.2 mg/dL (8.5-10.1); Chloride 111 mmol/L (98-107); Creatinine, Serum 0.91 mg/dL (0.55-1.02); EST Glomerular Filtration Rate 66 mL/min (>60); Est Glom Filt Rate - Afr Amer 80 mL/min (>60); Estimated Creatinine Clearance 51.35 ml/min; Globulin 3.8 g/dL (2.2-4.2); Glucose 87 mg/dL (74-106); Lipase 188 U/L (73-393); Potassium 3.3 mmol/L (3.5-5.1); Protein, Total 7.2 g/dL (6.4-8.2); Sodium Level 143 mmol/L (136-145); Troponin-I HS (w/2H Reflex) < 3 pg/mL (3.0-54.0)
[2021-08-23 02:38] VITALS: BP 109/65; PULSE 71; RESP 19; O2SAT 97
[2021-08-23 04:04] LABS: Reflex Troponin-HS? (from REC) Y
== END 2021-08-23 02:43 | disposition home or self-care (01) ==
PROVIDERS: Emergency Provider Emergency Medicine; PCP Family Medicine; Visit Provider Emergency Medicine
DX: R07.9 Chest pain, unspecified (principal); R11.2 Nausea with vomiting, unspecified; R10.13 Epigastric pain; F41.0 Panic disorder [episodic paroxysmal anxiety]; K21.9 Gastro-esophageal reflux disease without esophagitis; F32.A Depression, unspecified; G47.30 Sleep apnea, unspecified; Z79.899 Other long term (current) drug therapy
CPT/HCPCS: 71045; 80053; 83690; 84484; 85025; 93005; 99285

== ENCOUNTER 2022-01-08 23:26 | Observation (INO) | payer OTHER, SELFPAY ==
[2022-01-08 23:33] VITALS: BP 102/65; PULSE 52; RESP 17; TEMP 36.4; O2SAT 100; BMI 26.5
--- NOTE | 2022-01-08 23:44 | EKG12_ITS ---
Test Reason : RHYTHM CHANGE Blood Pressure : / mmHG Vent. Rate : 051 BPM Atrial Rate : 051 BPM P-R Int : 138 ms QRS Dur : 074 ms QT Int : 494 ms P-R-T Axes : 078 -16 007 degrees QTc Int : 455 ms Sinus bradycardia Low voltage QRS Nonspecific T wave abnormality Abnormal ECG When compared with ECG of 09-JAN-2022 12:25, MANUAL COMPARISON REQUIRED, DATA IS UNCONFIRMED Confirmed by STAR FARIA, JESSICA ([id number]), editor map SEJAL NIEVES ([id number]) on 01/14/2022 1:06:04 PM Referred By: BROOKLYNN Confirmed By:JESSICA GRAVES MD
--- NOTE | 2022-01-08 23:44 | RAD_ITS ---
STUDY: X-RAY CHEST REASON FOR EXAM: Female, 61 years old patient with chest pain. TECHNIQUE: Single AP portable view of the chest. COMPARISON: Chest radiograph dated 08/23/2021. FINDINGS: Cardiac monitoring leads are present. The lungs are clear and under expanded. There is no demonstrated pleural abnormality. Normal size heart. Normal mediastinum and nicole. Normal visualized pulmonary arteries. There is atherosclerotic calcification of the aortic arch with tortuosity. Normal visualized thoracic spine. Normal visualized ribs, clavicles, and shoulders. There is no demonstrated abnormality of the visualized soft tissue structures of the upper abdomen. RAD/Chest 1 View (Portable) IMPRESSION: No radiographic evidence of acute cardiopulmonary disease. Electronically Signed: Mckayla Perry MD at 0:33 EDT ,
--- NOTE | 2022-01-08 23:47 | EDS_ITS ---
HPI History of Present Illness Chief Complaint: Chest Pain Detail of Chief Complaint: Patient complains of upper abdomen pain and chest pain Informant: patient Narrative Narrative: Patient presents to the emergency department complaint of upper abdomen and chest pain us around 6 PM. Patient states that she was not feeling well and had a headache today. Patient then took 3 Excedrin migraine tablets. Patient then ate a sandwich and then subsequently developed this chest pain. Patient denies any radiation of the pain. She describes a pressure and a dull discomfort retrosternally. She has upper abdomen discomfort and frequent belching. She does have family history of heart disease but she herself is not had heart trouble. Patient denies recent travel or surgery. Patient did have COVID-19 3 weeks ago. Prior similar symptoms: Yes PFSH PFSH Medical History (Updated 01/09/22 @ 06:[address] Felicia Aguilar, DO) CPAP (continuous positive airway pressure) dependence Depression GERD (gastroesophageal reflux disease) Migraines Sleep apnea Home Medications esomeprazole magnesium 40 mg capsule,delayed release 40 mg PO DAILY 01/08/22 [History Last Taken Unknown] fluoxetine 20 mg capsule 40 mg PO DAILY 01/08/22 [History Last Taken Unknown] Allergy/AdvReac Type Severity Reaction Status Date / Time No Known Allergies Allergy Verified 01/08/22 23:36 Surgical History (Updated 01/08/22 @ 23:38 by Trenton De Jesus) Hx of foot surgery Social History Smoking Status: Never smoker ROS ROS ED Review of Systems ROS Unobtainable: other Constitutional Constitutional ED: Reports lethargy; Denies chills, fever(s), sweats or weight loss Eyes Eyes: Denies blurry vision, change in vision or diplopia ENT ENT ED: Denies rhinorrhea or sore throat Cardiovascular Cardiovascular: Reports chest pain; Denies orthopnea or racing heartbeat Respiratory/Chest Respiratory/Chest: Denies cough, dyspnea, dyspnea on exertion, orthopnea or sputum Gastrointestinal Gastrointestinal: Reports abdominal pain; Denies diarrhea, nausea or vomiting Genitourinary Genitourinary ED: Denies dysuria, hematuria or urinary frequency Musculoskeletal Musculoskeletal: Denies arthralgias, back pain, myalgias or neck pain Integumentary Denies abscess, Abrasions or rash Neurologic Neurologic: Denies headache(s) or weakness Psychiatric Psychiatric: Denies anxiety, depression or suicidal thoughts Endocrine Endocrinology: Denies polydipsia, polyphagia or polyuria Hematologic/Lymphatic Hematologic/Lymphatic: Denies easy bleeding, easy bruising or lymphadenopathy Allergic/Immunologic Allergic/Immunologic ED: Denies mouth swelling, tongue swelling or urticaria EXAM Physical Exam Const Vital Signs: 01/08/22 23:33 01/08/22 23:39 01/09/22 00:03 Temperature 97.5 F L Temperature Source Temporal Pulse Rate 52 L Respiratory Rate 17 Respiratory Effort Normal Respiratory Pattern Normal Blood Pressure 102/65 Blood Pressure Mean 77 Pulse Ox 100 Oxygen Delivery Method Room Air Room Air 01/09/22 02:21 01/09/22 03:34 01/09/22 05:00 Temperature Temperature Source Pulse Rate 72 74 Respiratory Rate 16 19 H 19 H Respiratory Effort Respiratory Pattern Blood Pressure 131/69 H 121/85 H Blood Pressure Mean 89 97 Pulse Ox 100 98 Oxygen Delivery Method Room Air Room Air 01/09/22 04:00 Temperature Temperature Source Pulse Rate 57 L Respiratory Rate 17 Respiratory Effort Respiratory Pattern Blood Pressure 129/85 H Blood Pressure Mean 99 Pulse Ox 98 Oxygen Delivery Method Room Air Positive well nourished and well developed General Appearance ED: well developed and NAD HEENT Reports TM's clear and moist mucous membranes normocephalic and atraumatic; Negative for trauma or tenderness Tympanic Membrane ED: Yes TM's clear Eyes PERRL and EOMs intact bilaterally General Eye ED: Negative for pale conjunctiva or scleral icterus Neck no lymphadenopathy, supple and no JVD General: Negative for tenderness Chest Wall inspection of chest normal and palpation of chest normal Chest: Negative for tenderness Resp normal respiratory effort and clear to auscultation bilaterally Effort and Inspection: Negative for respiratory distress or pain with movement Auscultation: Negative for rhonchi, wheezes or diminished lung sounds Cardio regular rate, regular rhythm, S1 normal heart sound, S2 normal heart sound and no murmurs Peripheral Pulses: pulses 2+ throughout GI normal to inspection, nondistended, normoactive bowel sounds, soft to palpation, non-distended and no masses GI Narrative: Tenderness palpation over the epigastric region with guarding. There is no rebound, rigidity, or peritoneal signs. Back/Spine no CVA tenderness and no thoracic nor lumbar tenderness Extremity normal to inspection General Extremety ED: Negative for edema General Extremity: Negative for edema Neuro oriented x3, CN's II-XII intact bilaterally, no sensory deficits noted and gait normal Sensorium / Orientation: awake, alert, oriented to person, oriented to place and oriented to time Motor Exam: strength 5/5 throughout and strength abnormal Psych mental status grossly normal Skin no rashes or lesions noted and no wounds MDM MDM MDM Narrative Medical decision making narrative: IV line established on arrival. Patient had already taken aspirin today. Patient given a GI cocktail and her chest pain resolved. Initial troponin was normal. D-dimer was normal. Patient had return of her pain and was given morphine and Zofran. CT scan of the abdomen pelvis obtained showed a distended gallbladder with dilated common bile duct. I discussed case with general surgeon on-call Dr. Raquel Street who recommended getting an emergent ultrasound which was performed here. Patient was noted to have very distended gallbladder with cholelithiasis and positive Peck sign suggesting sequela of acute cholecystitis. Patient had a dilated common bile duct. Patient was started on Zosyn IV. Patient will be admitted by surgeon. Lab Data Attestation: I reviewed the patient's lab results. Labs: Laboratory Results - last 24 hr 01/08/22 01/08/22 01/08/22 23:57 23:57 23:57 WBC 11.4 H RBC 3.92 L Hgb 11.8 L Hct 37.0 MCV 94.4 MCH 30.1 MCHC 31.9 L RDW Std Deviation 45.4 H RDW Coeff of Michelle 13.4 Plt Count 438 MPV 10.3 Immature Gran % (Auto) 0.500 Neut % (Auto) 81.4 H Lymph % (Auto) 11.6 L [place] % (Auto) 6.1 Eos % (Auto) 0.0 Baso % (Auto) 0.4 Absolute Neuts (auto) 9.3 H Absolute Lymphs (auto) 1.32 Nucleated RBC % 0 D-Dimer Quant (PE/DVT) 0.45 Sodium 144 Potassium 3.6 Chloride 113 H Carbon Dioxide 23.0 Anion Gap 8 BUN 25 H Creatinine 0.89 Estim Creat Clear Calc 52.50 Est GFR (MDRD) Af Amer 83 Est GFR (MDRD) Non-Af 68 BUN/Creatinine Ratio 28.0 H Glucose 137 H Calcium 8.9 Total Bilirubin 0.50 AST 83 H ALT 50 Alkaline Phosphatase 84 Troponin I High Sens 4 Total Protein 6.9 Albumin 3.2 Globulin 3.7 Albumin/Globulin Ratio 0.9 Lipase 240 01/09/22 02:03 WBC RBC Hgb Hct MCV MCH MCHC RDW Std Deviation RDW Coeff of Michelle Plt Count MPV Immature Gran % (Auto) Neut % (Auto) Lymph % (Auto) [place] % (Auto) Eos % (Auto) Baso % (Auto) Absolute Neuts (auto) Absolute Lymphs (auto) Nucleated RBC % D-Dimer Quant (PE/DVT) Sodium Potassium Chloride Carbon Dioxide Anion Gap BUN Creatinine Estim Creat Clear Calc Est GFR (MDRD) Af Amer Est GFR (MDRD) Non-Af BUN/Creatinine Ratio Glucose Calcium Total Bilirubin AST ALT Alkaline Phosphatase Troponin I High Sens 5 Total Protein Albumin Globulin Albumin/Globulin Ratio Lipase Radiography Chest X-Ray - ED: 1 View Diagnostic Testing: Clinical Impression(s) from Imaging Studies Chest X-Ray 01/08/22 23:44 IMPRESSION: No radiographic evidence of acute cardiopulmonary disease. Electronically Signed: Mckayla Perry MD at 0:33 EDT Reading Location ID and State: [employer] [facility] [employer] , Service support , Abdomen/Pelvis CT 01/09/22 02:49 IMPRESSION: 1. Very distended gallbladder with dilated intrahepatic and extrahepatic biliary ducts. 2. Questionable stricture involving the proximal transverse colon versus colonic spasm. Electronically Signed: Mckayla Perry MD at 3:28 EDT Reading Location ID and State: [employer] / [employer] , Service support , Gallbladder Ultrasound 01/09/22 03:40 IMPRESSION: 1. Very distended gallbladder with cholelithiasis and positive sonographic Peck''s sign suggests sequela of acute cholecystitis. 2. Dilated common bile duct. Electronically Signed: Mckayla Perry MD at 5:31 EDT Reading Location ID and State: [employer] / [employer] , Service support , 1 view chest x-ray obtained interpreted by myself no acute disease process. Radiology in agreement. EKG Initial EKG: Comments: Sinus bradycardia with a ventricular rate of [address] changes and prolonged QT Prior EKG tracings: available for review Prior: Changed Discharge Plan Triage Chief Complaint: Chest Pain ED Provider: Felicia Aguilar Dx/Rx/DC Orders Clinical Impression: Abdominal pain, Cholelithiasis, Acute cholecystitis Prescriptions: No Action esomeprazole magnesium 40 mg capsule,delayed release(DR/EC) 40 mg PO DAILY Label Comments: TAKE 1 CAPSULE BY MOUTH ONCE DAILY fluoxetine 20 mg capsule 40 mg PO DAILY Label Comments: TAKE 2 CAPSULES BY MOUTH ONCE DAILY BEFORE NOON Primary Care Provider: Nicki Dickens NP Referrals: Donna Roth [Non-Staff] - Disposition Disposition: Acute Care Hospital [facility]
[2022-01-08] MEDS: Mag Hydrox/Al Hydrox/Simeth 30 ML UDC PO (23:55)
[2022-01-08] MEDS: 0.9% Normal Saline 1,000 ML 150 ML IV (23:55)
[2022-01-09] VITALS (13 sets, daily range): BP systolic 111–146; BP diastolic 69–85; PULSE 49–74; RESP 11–19; TEMP 36.6–37.2; O2SAT 92–100; BMI 26.0
[2022-01-09 00:06] LABS: Absolute Lymphocyte Count 1.32 X10^3/uL (0.83-4.51); Absolute Neutrophil Count 9.3 X10^3/uL (2.0-7.7); Basophil# 0.05 X10^3/uL; Basophil% 0.4 % (0-1); Hemoglobin 11.8 g/dL (12.0-15.0); Lymphocyte # 1.32 X10^3/ul (0.83-4.51); Lymphocyte % 11.6 % (19-41); Mean Corp Hgb Conc 31.9 g/dL (32-36); Mean Corpuscular Hgb 30.1 pg (27.0-32.0); Mean Corpuscular Volume 94.4 fL (81-99); Mean Platelet Vol. 10.3 fl (6.2-12.0); Monocyte# 0.69 X10^3/uL; Monocyte% 6.1 % (0-10); NRBC Flagged by Analyzer 0 % (0-5); Neutrophil # 9.27 X10^3/uL (2.7-7.7); Neutrophil % 81.4 % (47-70); Platelet Count 438 K/mm3 (150-450); RBC Distribution Width CV 13.4 % (11.6-14.6); RBC Distribution Width SD 45.4 fl (35.1-43.9); Red Blood Count 3.92 M/mm3 (4.2-5.4); White Blood Count 11.4 K/mm3 (4.4-11.0)
[2022-01-09 00:17] LABS: D-Dimer Quantitative (DVT/PE) 0.45 FEU/ug/m (0.27-0.49)
[2022-01-09 00:34] LABS: ALB/GLOB Ratio 0.9 RATIO (0.9-2.4); AST(SGOT) 83 U/L (15-37); Alanine Aminotransfer ALT/SGPT 50 U/L (13-56); Albumin, Serum 3.2 g/dL (3.2-5.0); Alkaline Phosphatase 84 U/L (45-117); Anion Gap 8 (5-15); BUN 25 mg/dL (7-18); Calcium,Total 8.9 mg/dL (8.5-10.1); Chloride 113 mmol/L (98-107); Creatinine, Serum 0.89 mg/dL (0.55-1.02); EST Glomerular Filtration Rate 68 mL/min (>60); Est Glom Filt Rate - Afr Amer 83 mL/min (>60); Globulin 3.7 g/dL (2.2-4.2); Glucose 137 mg/dL (74-106); Lipase 240 U/L (73-393); Potassium 3.6 mmol/L (3.5-5.1); Protein, Total 6.9 g/dL (6.4-8.2); Sodium Level 144 mmol/L (136-145); Troponin-I HS (w/2H Reflex) 4 pg/mL (3.0-54.0)
[2022-01-09] MEDS: Ondansetron 4 MG/2 ML Vial IV (01:27)
[2022-01-09 02:03] LABS: Reflex Troponin-HS? (from REC) Y
[2022-01-09 02:33] LABS: Troponin-I HS 5 pg/mL (3.0-54.0)
--- NOTE | 2022-01-09 02:49 | CT_ITS ---
STUDY: CT ABDOMEN AND PELVIS WITH CONTRAST REASON FOR EXAM: Female, 61 years old patient with abdominal pain. RADIATION DOSAGE (If Supplied By Facility): CTDIvol = ( 12.47 ) mGy, DLP = ( 571.74 ) mGycm TECHNIQUE: Transaxial images were obtained from the dome of the diaphragm to the symphysis pubis without oral contrast. 100 mL of IV Isovue-370 was administered. Sagittal and coronal images were reconstructed. Individualized dose optimization techniques were used for this CT. COMPARISON: Prior comparison studies are not available for review at this time. FINDINGS: The visualized lung bases are unremarkable. The visualized portions of the heart are within normal limits. There is suggestion for mild dilatation of intrahepatic biliary ducts. There are no liver masses. The gallbladder is very distended with dilated extrahepatic bile duct measuring up to 13.4 mm. No gallstones are visualized. Normal spleen. Normal pancreas. Normal bilateral adrenal glands. Normal right kidney. Normal left kidney. There is a small hiatal hernia. There is no obvious dilated bowel, ascites or pneumoperitoneum. Small bowel has a grossly normal appearance. The most of the stool is visible in the ascending colon. There is abrupt transition in caliber within the hepatic flexure the colon and the transverse colon. This may be secondary to spasm or stricture. Sequela of infectious or inflammatory colitis is also possible. The descending colon is nondistended as is the transverse colon. There is non-visualization of the appendix. Normal abdominal aorta. Normal inferior vena cava. Normal retroperitoneum. Normal urinary bladder. Normal visualized uterus. Normal abdominal wall. The bones are osteopenic. Imaged thoracic and lumbar vertebral bodies have normal height and alignment. The bony pelvis is within normal limits in appearance. CT/Abdomen/Pelvis W IV Cont ONLY IMPRESSION: 1. Very distended gallbladder with dilated intrahepatic and extrahepatic biliary ducts. 2. Questionable stricture involving the proximal transverse colon versus colonic spasm. Electronically Signed: Mckayla Perry MD at 3:28 EDT ,
[2022-01-09] MEDS: Morphine 4 MG/ML Syringe IV (03:31)
--- NOTE | 2022-01-09 03:40 | US_ITS ---
STUDY: ABDOMINAL ULTRASOUND - RIGHT UPPER QUADRANT REASON FOR VISIT: Female, 61 years old patient with abdominal pain and distended gallbladder on CT. TECHNIQUE: Ultrasound evaluation of the right upper quadrant was performed with real-time and static canales-scale imaging. TECHNICAL QUALITY: Adequate. COMPARISON: CT of abdomen and pelvis dated 01/09/2022. FINDINGS: Liver: The liver measures 14.2 cm. There is a heterogeneous echogenicity of the liver. The bile ducts are within normal limits. There is hepatic color flow. The direction of portal flow is hepatopetal. There is no demonstrated mass lesion. Gallbladder: There is a markedly distended gallbladder. The gallbladder wall measures 1.4 mm. There is a positive sonographic Peck''s sign. There is no pericholecystic fluid. There are multiple echogenic structures within the gallbladder, consistent with multiple gallstones. Common Bile Duct (C.B.D.): The common bile duct measures 8.7 mm. Pancreas: Normal size of the head, body and tail of the pancreas. There is increased echogenicity of the pancreas. There is no demonstrated pancreatic mass or cyst. Right Kidney: Normal size of the right kidney. The right kidney measures 8.3 x 5.1 x 5.1 cm. Normal renal cortex. The right cortex measures 1.8 cm. There is no demonstrated renal mass or cyst. There is no right hydronephrosis. US/Gallbladder IMPRESSION: 1. Very distended gallbladder with cholelithiasis and positive sonographic Peck''s sign suggests sequela of acute cholecystitis. 2. Dilated common bile duct. Electronically Signed: Mckayla Perry MD at 5:31 EDT ,
--- NOTE | 2022-01-09 07:20 | PCM.HP.STD ---
HPI - General General Date of Admission: 01/09/22 HPI Narrative NKECHI BEDOYA, is a 61 F who presents to the ER due to epigastric and right upper quadrant pain starting at 6 PM last night. Patient nausea vomiting along with this. Patient does have chronic reflux states she may have some burning up her esophagus and usually vomits and the pain improves however that did not occur last night. Patient had a little bit of diarrhea. Patient did have a cardiac work-up which was negative. CT abdomen pelvis was done showed a distended gallbladder and ultrasound showed gallstones thickened gallbladder wall, no pericholecystic fluid, positive Peck's. Patient had a white blood count of 11.4 on admission normal LFTs. Patient was given Zosyn 4.5 g IV x1 in the ER. [facility] Medical History (Updated 01/09/22 @ 06:[address] Felicia Aguilar, DO) CPAP (continuous positive airway pressure) dependence Depression GERD (gastroesophageal reflux disease) Migraines Sleep apnea Home Medications esomeprazole magnesium 40 mg capsule,delayed release 40 mg PO DAILY 01/08/22 [History Last Taken Unknown] fluoxetine 20 mg capsule 40 mg PO DAILY 01/08/22 [History Last Taken Unknown] Allergy/AdvReac Type Severity Reaction Status Date / Time No Known Allergies Allergy Verified 01/08/22 23:36 Surgical History (Updated 01/08/22 @ 23:38 by Trenton De Jesus) Hx of foot surgery Social History Smoking Status: Never smoker ROS Constitutional Constitutional: Reports anorexia; Denies weakness ENT HEENT: Denies dizziness Cardiovascular Cardiovascular: Denies chest pain Respiratory/Chest Respiratory/Chest: Denies shortness of breath at rest Gastrointestinal Gastrointestinal: Reports diarrhea, heartburn, nausea and vomiting; Denies abdominal pain, constipation, hematemesis or melena Genitourinary Genitourinary: Denies burning urination Musculoskeletal Musculoskeletal: Denies joint pain Integumentary Integumentary: Denies rash Neurologic Neurologic: Denies focal weakness Psychiatric Psychiatric: Reports depression; Denies anxiety Endocrine Endocrinology: Denies palpitations Hematologic/Lymphatic Hematologic/Lymphatic: Reports easy bruising; Denies anemia or easy bleeding Vital Signs Vital Signs Vital Signs: 01/08/22 23:33 01/08/22 23:39 01/09/22 00:03 Temperature 97.5 F L Temperature Source Temporal Pulse Rate 52 L Respiratory Rate 17 Respiratory Effort Normal Respiratory Pattern Normal Blood Pressure 102/65 Blood Pressure Mean 77 Pulse Ox 100 Oxygen Delivery Method Room Air Room Air 01/09/22 02:21 01/09/22 03:34 01/09/22 05:00 Temperature Temperature Source Pulse Rate 72 74 Respiratory Rate 16 19 H 19 H Respiratory Effort Respiratory Pattern Blood Pressure 131/69 H 121/85 H Blood Pressure Mean 89 97 Pulse Ox 100 98 Oxygen Delivery Method Room Air Room Air 01/09/22 04:00 01/09/22 06:43 Temperature 98.9 F Temperature Source Temporal Pulse Rate 57 L 55 L Respiratory Rate 17 11 L Respiratory Effort Respiratory Pattern Blood Pressure 129/85 H 111/71 Blood Pressure Mean 99 84 Pulse Ox 98 92 Oxygen Delivery Method Room Air Room Air Weight Weight: 145 lb Body Mass Index (BMI) 26.5 Physical Exam Const alert, oriented x3 and no apparent distress HEENT normocephalic and head/scalp atraumatic Resp normal respiratory effort Cardio regular rate GI soft to palpation; Negative for non-distended Palpation: tender epigastric, RUQ and Peck's sign; Negative for guarding Extremity no clubbing, cyanosis or edema Neuro CN's II-XII intact bilaterally Psych mental status grossly normal Results Lab / Micro Data Result Diagrams: 01/08/22 23:57 01/08/22 23:57 Labs: Laboratory Results - last 24 hr 01/08/22 23:57: WBC 11.4 H, RBC 3.92 L, Hgb 11.8 L, Hct 37.0, MCV 94.4, MCH 30.1, MCHC 31.9 L, RDW Std Deviation 45.4 H, RDW Coeff of Michelle 13.4, Plt Count 438, MPV 10.3, Immature Gran % (Auto) 0.500, Neut % (Auto) 81.4 H, Lymph % (Auto) 11.6 L, [place] % (Auto) 6.1, Eos % (Auto) 0.0, Baso % (Auto) 0.4, Absolute Neuts (auto) 9.3 H, Absolute Lymphs (auto) 1.32, Nucleated RBC % 0 01/08/22 23:57: D-Dimer Quant (PE/DVT) 0.45 01/08/22 23:57: Sodium 144, Potassium 3.6, Chloride 113 H, Carbon Dioxide 23.0, Anion Gap 8, BUN 25 H, Creatinine 0.89, Estim Creat Clear Calc 52.50, Est GFR (MDRD) Af Amer 83, Est GFR (MDRD) Non-Af 68, BUN/Creatinine Ratio 28.0 H, Glucose 137 H, Calcium 8.9, Total Bilirubin 0.50, AST 83 H, ALT 50, Alkaline Phosphatase 84, Troponin I High Sens 4, Total Protein 6.9, Albumin 3.2, Globulin 3.7, Albumin/Globulin Ratio 0.9, Lipase 240 01/09/22 02:03: Troponin I High Sens 5 Radiology Impression Chest X-Ray 01/08/22 23:44 IMPRESSION: No radiographic evidence of acute cardiopulmonary disease. Electronically Signed: Mckayla Perry MD at 0:33 EDT , Abdomen/Pelvis CT 01/09/22 02:49 IMPRESSION: 1. Very distended gallbladder with dilated intrahepatic and extrahepatic biliary ducts. 2. Questionable stricture involving the proximal transverse colon versus colonic spasm. Electronically Signed: Mckayla Perry MD at 3:28 EDT Reading Location ID and State: [id number] / [place] , Service support , Gallbladder Ultrasound 01/09/22 03:40 IMPRESSION: 1. Very distended gallbladder with cholelithiasis and positive sonographic Peck''s sign suggests sequela of acute cholecystitis. 2. Dilated common bile duct. Electronically Signed: Mckayla Perry MD at 5:31 EDT , Assessment & Plan Assessment/Plan (1) Acute cholecystitis: PLAN: Plan Reviewed the anatomy with the patient and discussed the procedure: laparoscopic cholecystectomy with cholangiograms, possible open. Review risks including but not limited to bleeding, infection, hernia, bile leak, retained gallstones requiring another procedure ERCP- Endoscopic Retrograde Cholangiopancreatography, injury to another organ (bile ducts, common bile duct, small bowel, etc.) and conversion to an open procedure. All questions were answered. Raquel Lopez M.D. Pager: [phone] [facility] [address] [place] [address] [address] [place] [address] Office: [phone] Procedure Criteria Type of Procedure Procedure Type: Elective Elective Risks - COVID COVID Risk Discussion: The surgeon/proceduralist and patient have discussed in detail the risk of exposure to and/or potential harm posed by the COVID-19 virus with having a surgery/procedure at this time versus the risk of delaying the surgery/procedure. It is not possible to know either the risk of delaying the surgery or procedure or chance of getting an infection with perfect accuracy, but a joint decision was made between the patient and the surgeon/proceduralist to proceed at this time with the scheduled surgery/procedure as indicated on the consent form.
[2022-01-09] MEDS: HYDROmorphone 0.5 MG/0.5 ML SYRINGE IV (08:10)
[2022-01-09] MEDS: 0.9% Normal Saline 1,000 ML 120 ML IV ×3 (08:10→23:57)
[2022-01-09] MEDS: Lactated Ringers 1,000 ML 15 ML IV (11:39)
--- NOTE | 2022-01-09 12:06 | EKG12_ITS ---
Test Reason : AM EKG Blood Pressure : / mmHG Vent. Rate : 052 BPM Atrial Rate : 052 BPM P-R Int : 144 ms QRS Dur : 070 ms QT Int : 492 ms P-R-T Axes : 054 -22 -12 degrees QTc Int : 457 ms Sinus bradycardia Low voltage QRS Nonspecific T wave abnormality Abnormal ECG When compared with ECG of 09-JAN-2022 12:25, MANUAL COMPARISON REQUIRED, DATA IS UNCONFIRMED Confirmed by STAR FARIA, JESSICA ([id number]), editor greeting card SEJAL NIEVES ([id number]) on 01/13/2022 9:49:03 AM Referred By: Confirmed By:JESSICA GRAVES MD
--- NOTE | 2022-01-09 12:41 | PCM.PN.BLA ---
Progress Note Anesthesia was reviewing patient's previous EKG and did repeat EKG this morning which did have additional change for the T wave was flipped and now it normalized. Dr. Coker did discuss with cardiology Dr. Hoffman and recommend cardiac work-up prior to any surgery. Did discuss with patient that surgery is being put off until the cardiac work-up was complete. If there is any major concerns could be a possibility of getting a cholecystostomy tube temporarily. Also discussed with patient that if her surgery is able to be done tomorrow would be done by one my partners as I am out of town. We will also plan to consult hospitalist as well as cardiology- and have pt got to PCU. Patient still denies any chest pain or shortness of breath. Troponins were negative last night and this AM.
--- NOTE | 2022-01-09 12:52 | ECHOD_ITS ---
Reason For Study: PREOPERATIVE (GALLBLADDER) Procedure This was a 2D Doppler, Color Flow transthoracic echocardiogram. Exam performed portable in patient room. Image #39 is measured incorrectly; measurements are NOT on report. Left Ventricle Normal size and thickness. The left ventricular ejection fraction is 65 %. Right Ventricle Normal right ventricle. Atria The left atrium is mildly enlarged. Normal right atrium. Mitral Valve Moderate (2+) mitral valve insufficiency. Tricuspid Valve Trivial tricuspid valve insufficiency. Aortic Valve Trisinus/trileaflet aortic valve. There is no aortic stenosis. No aortic valve insufficiency. Pulmonic Valve The pulmonic valve is not well visualized. Great Vessels Normal aortic root. Pericardium/Pleural No pericardial effusion. MMode/2D Measurements & Calculations LVIDd: 4.7 cm IVSd: 0.70 cm Ao root diam: 2.7 cm LVIDs: 3.1 cm LVPWd: 0.65 cm FS: 33.4 % LAV(MOD-bp): 45.8 ml LA A4 area: 16.4 cm2 LA dimension(2D): 3.6 cm LAV(MOD-bp) Indexed: 27.7 ml/m2 LAV(MOD-sp2): 44.0 ml LAV(MOD-sp4): 45.0 ml RA A4 area: 8.9 cm2 Time Measurements MV dec time: 0.20 sec Doppler Measurements & Calculations MV E max merle: 70.3 cm/sec MV dec slope: 352.2 cm/sec2 Ao V2 max: 141.2 cm/sec MV A max merle: 80.2 cm/sec Ao max P.0 mmHg MV E/A: 0.88 Ao V2 mean: 97.7 cm/sec Ao mean P.4 mmHg Ao V2 VTI: 35.0 cm LV V1 max: 120.9 cm/sec MR max merle: 514.2 cm/sec PA V2 max: 83.5 cm/sec LV V1 max P.8 mmHg MR max P.8 mmHg LV V1 mean P.1 mmHg MR mean merle: 434.5 cm/sec LV V1 mean: 82.6 cm/sec MR mean P.3 mmHg LV V1 VTI: 28.7 cm MR VTI: 218.3 cm TR max merle: 257.3 cm/sec TR max P.8 mmHg ECHO/Echo Complete Interpretation Summary The left ventricular ejection fraction is 65 %. Moderate (2+) mitral valve insufficiency. Ordering Physician: Jhoana Carranza Referring Physician: Chely Lopez; Nicki Dickens Performed By: Chacha Maguire, BLAKE, RVT
[2022-01-09] MEDS: 0.9% Saline Lock 10 ML Syringe IV (12:59)
--- NOTE | 2022-01-09 13:03 | NURSING ---
primary RN informed room 120 on pcu for transfer
--- NOTE | 2022-01-09 13:26 | PN.HOSP_ITS ---
Subjective Subjective Mrs. Mcmanus is a 61-year-old female who presented to the emergency department last evening with epigastric and right upper quadrant pain that started at 6 PM on the night of presentation. She had experienced nausea and vomiting along with this as well as some mild diarrhea. A CT of the abdomen pelvis was done and showed a distended gallbladder with a follow-up ultrasound showing gallstones and a thickened gallbladder wall along with a positive Peck sign. The patient's white count was slightly elevated on presentation 11.4 and she had normal LFTs on presentation. She was admitted to the medical floor with plans to be taken the operating room today. Her initial EKG in the emergency department noted some inverted T waves in the lateral leads however it had normalized and they were upright per report. This is apparently was discussed by anesthesia with cardiology and they recommended a cardiac work-up. Dr. Macias discussed the case with cardiology and they asked that we be consulted as well. Patient reports she has an epigastric and right upper quadrant pain on presentation but never had any chest pain and denies any shortness of breath. She currently states her pain is under control and would like to go to the OR soon as possible. Objective Data Objective Data Vital Signs: Vital Signs Temp Pulse Resp BP Pulse Ox O2 Del Method 98.1 F 57 L 18 125/74 H 98 Room Air 01/09/22 08:18 01/09/22 08:18 01/09/22 08:18 01/09/22 08:18 01/09/22 11:43 01/09/22 11:43 Oxygen Delivery Method Room Air Weight: 64.665 kg Body Mass Index (BMI) 26.0 Intake & Output: Intake and Output for Last 24 Hours 01/07/22 01/08/22 01/09/22 23:59 23:59 23:59 Intake Total 1732 / 1732 Balance 1732 / 1732 Lab / Micro Data Result Diagrams: 01/08/22 23:57 01/08/22 23:57 Labs: Laboratory Results - last 24 hr 01/08/22 23:57: WBC 11.4 H, RBC 3.92 L, Hgb 11.8 L, Hct 37.0, MCV 94.4, MCH 30.1, MCHC 31.9 L, RDW Std Deviation 45.4 H, RDW Coeff of Michelle 13.4, Plt Count 438, MPV 10.3, Immature Gran % (Auto) 0.500, Neut % (Auto) 81.4 H, Lymph % (Auto) 11.6 L, [place] % (Auto) 6.1, Eos % (Auto) 0.0, Baso % (Auto) 0.4, Absolute Neuts (auto) 9.3 H, Absolute Lymphs (auto) 1.32, Nucleated RBC % 0 01/08/22 23:57: D-Dimer Quant (PE/DVT) 0.45 01/08/22 23:57: Sodium 144, Potassium 3.6, Chloride 113 H, Carbon Dioxide 23.0, Anion Gap 8, BUN 25 H, Creatinine 0.89, Estim Creat Clear Calc 52.50, Est GFR (MDRD) Af Amer 83, Est GFR (MDRD) Non-Af 68, BUN/Creatinine Ratio 28.0 H, Glucose 137 H, Calcium 8.9, Total Bilirubin 0.50, AST 83 H, ALT 50, Alkaline Phosphatase 84, Troponin I High Sens 4, Total Protein 6.9, Albumin 3.2, Globulin 3.7, Albumin/Globulin Ratio 0.9, Lipase 240 01/09/22 02:03: Troponin I High Sens 5 Radiography Diagnostic Testing: Radiology Impression Chest X-Ray 01/08/22 23:44 IMPRESSION: No radiographic evidence of acute cardiopulmonary disease. Electronically Signed: Mckayla Perry MD at 0:33 EDT Reading Location ID and State: [facility] / [place] , Service support , Abdomen/Pelvis CT 01/09/22 02:49 IMPRESSION: 1. Very distended gallbladder with dilated intrahepatic and extrahepatic biliary ducts. 2. Questionable stricture involving the proximal transverse colon versus colonic spasm. Electronically Signed: Mckayla Perry MD at 3:28 EDT , Gallbladder Ultrasound 01/09/22 03:40 IMPRESSION: 1. Very distended gallbladder with cholelithiasis and positive sonographic Peck''s sign suggests sequela of acute cholecystitis. 2. Dilated common bile duct. Electronically Signed: Mckayla Perry MD at 5:31 EDT Reading Location ID and State: [facility] / [place] , Service support , Physical Exam Const alert, oriented x3, no apparent distress and well nourished Constitutional Narrative: Upper middle-aged white female lying in bed, public works technician at bedside, patient karis ears comfortable nontoxic HEENT head/scalp atraumatic and moist oral mucous membranes Head and Scalp: normocephalic Resp normal respiratory effort, no retractions, no use of accessory muscles and clear to auscultation bilaterally Auscultation: Negative for crackles, rales, rhonchi or wheezes Cardio regular rate, regular rhythm, S1 normal heart sound, S2 normal heart sound, no murmurs, no rub, no gallops and no clicks GI soft to palpation and non-distended GI Narrative: Tender right upper quadrant/epigastrium, bowel sounds are normal Palpation: tender Extremity no clubbing, cyanosis or edema Neuro oriented x3, moves all extremities and no focal motor deficits Sensorium / Orientation: awake, alert, oriented to person, oriented to place and oriented to time Speech: speech normal Assessment & Plan Assessment/Plan (1) Abnormal EKG: (2) Abdominal pain: (3) Cholelithiasis: (4) Acute cholecystitis: PLAN: Plan Abnormal EKG -Initial EKG showed inverted T waves in the lateral leads with repeat EKG very subtle differences -2 cardiac enzymes thus far both were normal -We will cycle cardiac enzymes -Check echocardiogram -Patient has no chest pain or shortness of breath -Cardiology is consulted -Patient did have a stress test in August 2020 that showed no inducible ischemia Acute cholecystitis -Plan is for cholecystectomy as soon as cardiac work-up is complete -Hopefully will be able to be performed tomorrow -Could potentially need a PERC [place] tube if she is able to have surgery done for cardiac reason -N.p.o. after midnight -Care per general surgery GERD -Continue PPI Depression -Continue fluoxetine DVT prophylaxis -per primary service CODE STATUS -Full code Charges/Coding Visit Charges OBSV E&M: 04641 Initial observation care L2
--- NOTE | 2022-01-09 13:26 | NURSING ---
[facility] at bedside doing echo- aware of transfer to PCU order. Tech agrees to inform nursing when done with echo so pt can be transferred to PCU per bed
--- NOTE | 2022-01-09 15:26 | CON.PCM.CA_ITS ---
Assessment & Plan Assessment/Plan (1) Abnormal EKG: PLAN: Patient is being contemplated for cholecystectomy. I would recommend further evaluating her cardiac risk with doing the Lexiscan stress nuclear test. If the surgery is emergent or urgent however, then she may proceed to the OR without any further investigations excepting the risk. (2) Acute cholecystitis: PLAN: As per general surgery. (3) Prolonged Q-T interval on ECG: PLAN: Check magnesium level. HPI Consult Data Date of Consult: 01/09/22 HPI Narrative Reason for Consultation: Abnormal ECG HPI Narrative: 61-year-old female who presented to the emergency room with complaints of epigastric and chest discomfort. According to the patient, her chest pain was anterior. No radiation to the arm neck or jaw. She perceived this as a dull sensation. According to her, it was waning and waxing and quality. She also had some right upper quadrant pain. Positive shortness of breath. Positive nausea. Patient had initial work-up done in the emergency room. This included an EKG. Also imaging was done of the abdomen. This showed dilated gallbladder with features suggestive of cholecystitis. She was scheduled for surgery this afternoon however as her EKG was noted to be suspicious, we have been consulted for her preop cardiac risk assessment and evaluation. Patient denies any previous history of heart disease. Denies any previous history of chest pain either at rest or with exertion. She does however give history of shortness of breath with exertion. No orthopnea or PND. Denies any history of ankle edema. [facility] Medical History (Updated 01/09/22 @ 15:[address] Brian Hoffman MD) CPAP (continuous positive airway pressure) dependence Depression GERD (gastroesophageal reflux disease) Migraines Sleep apnea Home Medications esomeprazole magnesium 40 mg capsule,delayed release 40 mg PO DAILY 01/08/22 [History Last Taken 01/08/22] fluoxetine 20 mg capsule 40 mg PO DAILY Check with primary doctor 01/08/22 [History Last Taken 01/08/22] Allergy/AdvReac Type Severity Reaction Status Date / Time No Known Allergies Allergy Verified 01/08/22 23:36 Family History no significant family his no significant family history Surgical History (Updated 01/08/22 @ 23:38 by Trenton De Jesus) Hx of foot surgery Social History Smoking Status: Never smoker ROS Constitutional Constitutional: Reports as per HPI Physical Exam Const alert and oriented x3 General Appearance: cooperative Resp normal air movement Cardio regular rate, regular rhythm, S1 normal heart sound, S2 normal heart sound and no murmurs Jugular Venous Distention: Negative for JVD GI soft to palpation Extremity no pedal edema Risk Stratification Risk Stratification Applicable: No Objective Data EKG done on 08 January 2022 at 11:33 PM showed sinus bradycardia. ST-T wave c hanges consistent with possibly inferior lateral ischemia were noted. Prolonged QT interval. High-sensitivity troponins have been negative. Normal LV systolic function on 2D echocardiogram. Vital Signs: Vital Signs Temp Pulse Resp BP Pulse Ox O2 Del Method 98.1 F 57 L 18 125/74 H 98 Room Air 01/09/22 08:18 01/09/22 08:18 01/09/22 08:18 01/09/22 08:18 01/09/22 11:43 01/09/22 11:43 Oxygen Delivery Method Room Air Weight: 142 lb 9 oz Body Mass Index (BMI) 26.0 Intake & Output: Intake and Output for Last 24 Hours 01/07/22 01/08/22 01/09/22 23:59 23:59 23:59 Intake Total 1732 / 1732 Balance 1732 / 1732 Lab / Micro Data Result Diagrams: 01/08/22 23:57 01/08/22 23:57 Labs: Laboratory Results - last 24 hr 01/08/22 23:57: WBC 11.4 H, RBC 3.92 L, Hgb 11.8 L, Hct 37.0, MCV 94.4, MCH 30.1, MCHC 31.9 L, RDW Std Deviation 45.4 H, RDW Coeff of Michelle 13.4, Plt Count 438, MPV 10.3, Immature Gran % (Auto) 0.500, Neut % (Auto) 81.4 H, Lymph % (Auto) 11.6 L, [place] % (Auto) 6.1, Eos % (Auto) 0.0, Baso % (Auto) 0.4, Absolute Neuts (auto) 9.3 H, Absolute Lymphs (auto) 1.32, Nucleated RBC % 0 01/08/22 23:57: D-Dimer Quant (PE/DVT) 0.45 01/08/22 23:57: Sodium 144, Potassium 3.6, Chloride 113 H, Carbon Dioxide 23.0, Anion Gap 8, BUN 25 H, Creatinine 0.89, Estim Creat Clear Calc 52.50, Est GFR (MDRD) Af Amer 83, Est GFR (MDRD) Non-Af 68, BUN/Creatinine Ratio 28.0 H, Glucose 137 H, Calcium 8.9, Total Bilirubin 0.50, AST 83 H, ALT 50, Alkaline Phosphatase 84, Troponin I High Sens 4, Total Protein 6.9, Albumin 3.2, Globulin 3.7, Albumin/Globulin Ratio 0.9, Lipase 240 01/09/22 02:03: Troponin I High Sens 5 Cardiology Labs/Tests 01/08/22 23:57: WBC 11.4 H, RBC 3.92 L, Hgb 11.8 L, Hct 37.0, MCV 94.4, MCH 30.1, MCHC 31.9 L, Plt Count 438, MPV 10.3, Immature Gran % (Auto) 0.500, Neut % (Auto) 81.4 H, Lymph % (Auto) 11.6 L, [place] % (Auto) 6.1, Eos % (Auto) 0.0, Baso % (Auto) 0.4, Absolute Neuts (auto) 9.3 H, Nucleated RBC % 0 01/08/22 23:57: D-Dimer Quant (PE/DVT) 0.45 01/08/22 23:57: Sodium 144, Potassium 3.6, Chloride 113 H, Carbon Dioxide 23.0, Anion Gap 8, BUN 25 H, Creatinine 0.89, Est GFR (MDRD) Af Amer 83, Est GFR (MDRD) Non-Af 68, BUN/Creatinine Ratio 28.0 H, Glucose 137 H, Calcium 8.9, Total Bilirubin 0.50 Rhythm: EKG: ECHO: Stress Test: Cardiac Cath: PCI: CT Surgery: Holter monitor: EPS: PPM: CXR: Chest CT Scan: Radiography Diagnostic Testing: Radiology Impression Chest X-Ray 01/08/22 23:44 IMPRESSION: No radiographic evidence of acute cardiopulmonary disease. Electronically Signed: Mckayla Perry MD at 0:33 EDT Reading Location ID and State: [facility] / [place] , Service support , Abdomen/Pelvis CT 01/09/22 02:49 IMPRESSION: 1. Very distended gallbladder with dilated intrahepatic and extrahepatic biliary ducts. 2. Questionable stricture involving the proximal transverse colon versus colonic spasm. Electronically Signed: Mckayla Perry MD at 3:28 EDT , Gallbladder Ultrasound 01/09/22 03:40 IMPRESSION: 1. Very distended gallbladder with cholelithiasis and positive sonographic Peck''s sign suggests sequela of acute cholecystitis. 2. Dilated common bile duct. Electronically Signed: Mckayla Perry MD at 5:31 EDT , Echocardiogram 01/09/22 12:52 Interpretation Summary The left ventricular ejection fraction is 65 %. Moderate (2+) mitral valve insufficiency. Ordering Physician: Jhoana Carranza Referring Physician: Chely Lopez; Nicki Dickens Performed By: Chacha Maguire, CORZAONCS, RVT
[2022-01-09 16:06] LABS: Troponin-I HS 6 pg/mL (3.0-54.0)
[2022-01-09] MEDS: Acetaminophen 325 MG Tablet 650 MG PO (17:00)
[2022-01-09 17:39] LABS: Troponin-I HS 5 pg/mL (3.0-54.0)
--- NOTE | 2022-01-09 20:20 | EKG12_ITS ---
Test Reason : CP Blood Pressure : / mmHG Vent. Rate : 051 BPM Atrial Rate : 051 BPM P-R Int : 138 ms QRS Dur : 068 ms QT Int : 568 ms P-R-T Axes : 062 -38 -62 degrees QTc Int : 523 ms Sinus bradycardia Left axis deviation T wave abnormality, consider inferior ischemia T wave abnormality, consider anterior ischemia Prolonged QT Abnormal ECG Confirmed by STAR FARIA, JESSICA ([id number]), book or script editor SEJAL NIEVES ([id number]) on 01/13/2022 9:51:19 AM Referred By: SANA Confirmed By:JESSICA GRAVES MD
[2022-01-09 20:31] LABS: Magnesium 2.5 mg/dL (1.6-2.6)
[2022-01-09 21:18] LABS: Troponin-I HS 6 pg/mL (3.0-54.0)
[2022-01-09] MEDS: FLUoxetine 20 MG Capsule 40 MG PO (22:45)
[2022-01-10] VITALS (14 sets, daily range): BP systolic 97–135; BP diastolic 58–79; PULSE 49–88; RESP 16–18; TEMP 36.3–37.2; O2SAT 93–100
[2022-01-10] MEDS: oxyCODONE 5 MG Tablet PO (03:30)
[2022-01-10] MEDS: Acetaminophen 325 MG Tablet 650 MG PO ×3 (03:30→22:04)
--- NOTE | 2022-01-10 05:55 | EKG12_ITS ---
Test Reason : PRE OP Blood Pressure : / mmHG Vent. Rate : 054 BPM Atrial Rate : 054 BPM P-R Int : 142 ms QRS Dur : 072 ms QT Int : 462 ms P-R-T Axes : 066 -30 002 degrees QTc Int : 438 ms Sinus bradycardia Left axis deviation Nonspecific T wave abnormality Abnormal ECG When compared with ECG of 08-JAN-2022 23:33, MANUAL COMPARISON REQUIRED, DATA IS UNCONFIRMED Confirmed by STAR FARIA, JESSICA ([id number]), senior technical editor SEJAL NIEVES ([id number]) on 01/13/2022 9:51:53 AM Referred By: ALEX Confirmed By:JESSICA GRAVES MD
--- NOTE | 2022-01-10 07:32 | PN.SURG_ITS ---
Subjective Subjective Patient seen and examined during AM rounds. She reports that she had a restful night overnight with improvement in her headache and abdominal pains. She denies expressly, any chest pain or shortness of breath. Denies any radiating arm pain. She confirms that she has been told she has a stress test today, but is uncertain of when that is due to take place. Objective Data Objective Data Vital Signs: Vital Signs Temp Pulse Resp BP Pulse Ox O2 Del Method 97.4 F L 59 L 16 134/75 H 98 Room Air 01/10/22 03:26 01/10/22 03:26 01/10/22 03:26 01/10/22 03:26 01/10/22 03:26 01/10/22 03:26 Oxygen Delivery Method Room Air Weight: 142 lb 9 oz Body Mass Index (BMI) 26.0 Intake & Output: Intake and Output for Last 24 Hours 01/08/22 01/09/22 01/10/22 23:59 23:59 23:59 Intake Total 2782 / 2782 50 / 50 Balance 2782 / 2782 50 / 50 Lab / Micro Data Result Diagrams: 01/08/22 23:57 01/08/22 23:57 Labs: Laboratory Results - last 24 hr 01/09/22 15:03: Troponin I High Sens 6 01/09/22 16:40: Troponin I High Sens 5 01/09/22 16:40: Magnesium 2.5 01/09/22 20:40: Troponin I High Sens 6 Radiography Diagnostic Testing: Radiology Impression Echocardiogram 01/09/22 12:52 Interpretation Summary The left ventricular ejection fraction is 65 %. Moderate (2+) mitral valve insufficiency. Ordering Physician: Jhoana Carranza Referring Physician: Miriam Lopez Charlene Performed By: Chacha Maguire, RDCS, RVT Physical Exam Const oriented x3 and no apparent distress Resp normal respiratory effort GI GI Narrative: Nondistended, soft, mildly tender to palpation in the right upper quadrant that is worse with inspiration Assessment & Plan Assessment/Plan (1) Abnormal EKG: PLAN: Patient is a 61-year-old female admitted with diagnosis of acute cholecystitis and had some T wave inversion on her intake EKG that normalized. However given this T wave variability anesthesia asked for additional cardiac work-up. Thus far patient's cardiac enzymes have been negative and an echo showed normal ejection fraction yesterday. Cardiology still feels that a myocardial perfusion scan would be beneficial to fully clear patient. Theref ore, patient is scheduled for this procedure today. Since it is uncertain when this procedure will take place and when the result will be known, this morning's surgery is on hold. (2) Acute cholecystitis: PLAN: Patient with improved, but persistent discomfort in the right upper quadrant. I have ordered a repeat CBC and CMP for her this morning. She was n.p.o. prior to this morning anticipation of the procedure. Is my understanding that she will go for a Lexiscan this morning, but that that result will likely be rendered this afternoon. Will discuss with the floor whether patient is able to go to the OR later today versus tomorrow morning for laparoscopic cholecy stectomy with possible intraoperative cholangiogram. For now we will continue continuous IV antibiotic infusion Zosyn and monitor her abdominal exam. Charges/Coding Visit Charges Inpatient E&M: 10080 [facility] Hosp L2
[2022-01-10 07:41] LABS: Absolute Neutrophil Count 2.2 X10^3/uL (2.0-7.7); Basophil# 0.01 X10^3/uL; Basophil% 0.2 % (0-1); Eosinophil# 0.04 X10^3/uL; Hematocrit 32.4 % (37-47); Hemoglobin 10.3 g/dL (12.0-15.0); Lymphocyte % 38.4 % (19-41); Mean Corp Hgb Conc 31.8 g/dL (32-36); Mean Corpuscular Hgb 30.5 pg (27.0-32.0); Mean Corpuscular Volume 95.9 fL (81-99); Mean Platelet Vol. 10.2 fl (6.2-12.0); Monocyte# 0.36 X10^3/uL; Monocyte% 8.6 % (0-10); NRBC Flagged by Analyzer 0 % (0-5); Neutrophil # 2.15 X10^3/uL (2.7-7.7); Neutrophil % 51.6 % (47-70); Platelet Count 334 K/mm3 (150-450); RBC Distribution Width CV 13.9 % (11.6-14.6); RBC Distribution Width SD 48.7 fl (35.1-43.9); Red Blood Count 3.38 M/mm3 (4.2-5.4); White Blood Count 4.2 K/mm3 (4.4-11.0)
[2022-01-10 08:07] LABS: ALB/GLOB Ratio 0.9 RATIO (0.9-2.4); AST(SGOT) 146 U/L (15-37); Alanine Aminotransfer ALT/SGPT 198 U/L (13-56); Albumin, Serum 2.7 g/dL (3.2-5.0); Alkaline Phosphatase 91 U/L (45-117); Anion Gap 6 (5-15); BUN 16 mg/dL (7-18); Calcium,Total 8.2 mg/dL (8.5-10.1); Chloride 113 mmol/L (98-107); Creatinine, Serum 0.67 mg/dL (0.55-1.02); EST Glomerular Filtration Rate 95 mL/min (>60); Est Glom Filt Rate - Afr Amer 116 mL/min (>60); Estimated Creatinine Clearance 69.74 ml/min; Globulin 3.1 g/dL (2.2-4.2); Glucose 73 mg/dL (74-106); Potassium 3.5 mmol/L (3.5-5.1); Protein, Total 5.8 g/dL (6.4-8.2); Sodium Level 143 mmol/L (136-145)
--- NOTE | 2022-01-10 09:30 | GALL_PTH ---
PATIENT: NKECHI BEDOYA LOC: PCU U#:[id number] AGE/SX: 61/F ROOM: [facility] RE01/09/[address]: Dr. Raquel Lopez MD : 1960 BED: 1 DIS: 01/11/2022 SPEC #: [id number] RECD: 01/13/22 09:57 STATUS: ROSI REPj #: [id number] MARIELOS: 01/10/22 09:[address]: Raquel Lopez DEPT: SURGICAL PATHOLOGY RECD BY: Aurora Mcghee ENTERED: 01/13/22 12:38 SP TYPE: ABBEY RAMIREZ DR: MD Dr. Jhoana Cee, DO Nicki Dickens, TOMBSTONE ERECTOR-C Tissues: Gallbladder, NOS Procedures: Surgery Specimen Level III HEADER OPERATION: Laparoscopic cholecystectomy with IOC PRE-OP DIAGNOSIS: Acute cholecystitis TISSUE SUBMITTED: Gallbladder MICROSCOPIC DIAGNOSIS Gallbladder, cholecystectomy: Chronic cholecystitis and cholelithiasis. AM:mily 01/14/2022 MICROSCOPIC DESCRIPTION Slides are reviewed. GROSS DESCRIPTION Received is one container labeled with the patient's name and designated gallbladder. The specimen consists of a gallbladder measuring 10 cm in length and up to 3 cm in diameter. The external surface is pink-daniel, smooth and glistening for the most part. Focally it is granular, hemorrhagic and contains cautery artifact. The gallbladder contains a small amount of green-yellow mucoid bile and distended with multiple, multifaceted yellow stones measuring in aggregate 6 x 6 x 2 cm and 0.1 to 1.2 cm in greatest dimension. The mucosa is bile-stained and without any mass lesions. The gallbladder wall measures up to 0.2 cm in thickness. Gmat Instructor sections from the gallbladder and the cystic duct are submitted in one cassette. / SJ:mily 01/13/2022 TC:3 CPT: 23105
[2022-01-10] MEDS: 0.9% Normal Saline 1,000 ML 120 ML IV (10:26)
--- NOTE | 2022-01-10 11:55 | STRESSREP ---
Stress Test Report Myocardial perfusion stress test. 61-year-old lady with a history of anterior EKG changes for preoperative cardiac evaluation. Stress protocol: Resting KG demonstrates sinus bradycardia with a rate of 56 bpm normal intervals are noted resting blood pressure is 120/62 mmHg. 0.4 mg of regadenoson was infused per usual protocol followed by Intravenous saline flush injection continuous EKG monitoring was performed. The maximum heart rate attained was 99 bpm which was 62% of max impacted heart rate the maximum workload was 1 metabolic equivalent. At rest there were no ST or T wave changes noted to suggest abnormal flow reserve and at peak infusion nonspecific ST changes were noted with did not meet the criteria for ischemia. No clinical angina was noted the test was terminated due to completion of the protocol. The final blood pressure is 126/74 mmHg. Myocardial perfusion protocol. 11.0 mCi of technetium 99m sestamibi was injected at rest. 0.4 mg of regadenoson was infused per usual protocol. At peak infusion 34.0 mCi of technetium 99m sestamibi was injected stress images were obtained stress and rest images were reconstructed in comparing the short axis vertical long and horizontal long axis. Gated images were not obtained. Perfusion SPECT analysis: Review of the stress images demonstrate normal uptake of tracer noted in all areas of the myocardium. There is minimal reduction of perfusion in the distal anterior wall. This appears to be present on the resting images as well. The above is not suggestive of any obvious ischemia. The rest of the heller appear to be normally perfused. Conclusion: Pharmacologic myocardial perfusion stress test with no obvious ischemia noted.
--- NOTE | 2022-01-10 11:56 | NURSING ---
Dr. Pritchard phoned this nurse and stated that he reviewed the stress test and patient may go to surgery.
--- NOTE | 2022-01-10 13:27 | PCM.PN.HOSP ---
Subjective Subjective Patient states she is feeling okay. Denies any significant abdominal pain or nausea or vomiting. No chest pain through the night or shortness of breath. Objective Data Objective Data Vital Signs: Vital Signs Temp Pulse Resp BP Pulse Ox O2 Del Method 98.7 F 51 L 16 135/79 H 97 Room Air 01/10/22 10:20 01/10/22 11:04 01/10/22 10:20 01/10/22 10:20 01/10/22 10:20 01/10/22 10:20 Oxygen Delivery Method Room Air Weight: 64.665 kg Body Mass Index (BMI) 26.0 Intake & Output: Intake and Output for Last 24 Hours 01/08/22 01/09/22 01/10/22 23:59 23:59 23:59 Intake Total 2782 / 2782 1065 / 1065 Balance 2782 / 2782 1065 / 1065 Lab / Micro Data Result Diagrams: 01/10/22 07:30 01/10/22 07:30 Labs: Laboratory Results - last 24 hr 01/09/22 15:03: Troponin I High Sens 6 01/09/22 16:40: Troponin I High Sens 5 01/09/22 16:40: Magnesium 2.5 01/09/22 20:40: Troponin I High Sens 6 01/10/22 07:30: WBC 4.2 L, RBC 3.38 L, Hgb 10.3 L, Hct 32.4 L, MCV 95.9, MCH 30.5, MCHC 31.8 L, RDW Std Deviation 48.7 H, RDW Coeff of Michelle 13.9, Plt Count 334, MPV 10.2, Immature Gran % (Auto) 0.200, Neut % (Auto) 51.6, Lymph % (Auto) 38.4, [place] % (Auto) 8.6, Eos % (Auto) 1.0, Baso % (Auto) 0.2, Absolute Neuts (auto) 2.2, Absolute Lymphs (auto) 1.60, Nucleated RBC % 0 01/10/22 07:30: Sodium 143, Potassium 3.5, Chloride 113 H, Carbon Dioxide 24.0, Anion Gap 6, BUN 16, Creatinine 0.67, Estim Creat Clear Calc 69.74, Est GFR (MDRD) Af Amer 116, Est GFR (MDRD) Non-Af 95, BUN/Creatinine Ratio 24.0 H, Glucose 73 L, Calcium 8.2 L, Total Bilirubin 0.60, AST 146 H, ALT 198 H, Alkaline Phosphatase 91, Total Protein 5.8 L, Albumin 2.7 L, Globulin 3.1, Albumin/Globulin Ratio 0.9 Radiography Diagnostic Testing: Radiology Impression Echocardiogram 01/09/22 12:52 Interpretation Summary The left ventricular ejection fraction is 65 %. Moderate (2+) mitral valve insufficiency. Ordering Physician: Jhoana Carranza Referring Physician: Chely Lopez; Nicki Dickens Performed By: Chacha Maguire, BLAKE, RVT Physical Exam Const alert, oriented x3, no apparent distress and well nourished Constitutional Narrative: Upper middle-aged white female lying in bed in a dark room, patient appears comfortable, nontoxic HEENT head/scalp atraumatic and moist oral mucous membranes Resp normal respiratory effort, no retractions, no use of accessory muscles and clear to auscultation bilaterally Auscultation: Negative for crackles, rales, rhonchi or wheezes Cardio regular rate, regular rhythm, S1 normal heart sound, S2 normal heart sound, no murmurs, no rub, no gallops and no clicks GI normal to inspection, nondistended, normoactive bowel sounds and soft to palpation GI Narrative: Mild tender right upper quadrant/epigastrium Extremity no clubbing, cyanosis or edema Neuro oriented x3, moves all extremities and no focal motor deficits Sensorium / Orientation: awake, alert, oriented to person, oriented to place and oriented to time Speech: speech normal Assessment & Plan Assessment/Plan (1) Abnormal EKG: (2) Abdominal pain: (3) Cholelithiasis: (4) Acute cholecystitis: PLAN: Plan Abnormal EKG -Initial EKG showed inverted T waves in the lateral leads with repeat EKG very subtle differences -2 cardiac enzymes thus far both were normal -Cardiac enzymes are negative -Echocardiogram diagram shows normal EF with no wall motion abnormality -Stress test recommended by cardiology and shows no pharmacologic mild cardial perfusion abnormalities or ischemia -Patient has no chest pain or shortness of breath -Plan is for OR later today Acute cholecystitis -Plan is for cholecystectomy as soon as cardiac work-up is complete -Plan is for OR later today -Patient remains n.p.o. -Care per general surgery--> Dr. Arriaza following GERD -Continue PPI Depression -Continue fluoxetine DVT prophylaxis -per primary service CODE STATUS -Full code Charges/Coding Visit Charges OBSV E&M: 73614 Initial observation care L2
--- NOTE | 2022-01-10 14:05 | NURSING ---
Pt to surgery via surgical dental assistant [place].
--- NOTE | 2022-01-10 15:25 | RAD_ITS ---
PROCEDURE: ERCP VIA THE CYSTIC DUCT IN THE OPERATING ROOM OF 1614 HOURS ON 01/10/2022 CONSENT: Given with surgery to Dr. Anupam Arriaza.. SEDATION: Drug and dose not given. FLUOROSCOPY TIME (if supplied): 57.7 seconds Placement of the catheter and the procedure were performed by: Dr. Anupam Arriaza 3 fluoroscopic spot films were performed. TECHNIQUE: (All elements of maximal sterile barrier technique followed, including US elements as applicable) FINDINGS: There is excellent visualization of the cystic duct, intrahepatic biliary system, and common duct. There is a filling defect in the distal common duct (suggesting a calculus), causing obstruction. Proximal to the obstructing calculus in the distal common duct are 2 other small calculi. There is no evidence of calculi within the intrahepatic biliary system or cystic duct. A few air bubbles are noted within the cystic duct and one air bubble is noted in the mid lour right intrahepatic bile. RAD/Cholangiogram/ O R,Initial IMPRESSION: 1. Obstruction of the distal common duct by a small calculus. 2. Presence of 2 additional calculi just proximal to the obstructing calculus in the distal common duct. 3. No other calculi noted in the remainder of the common duct, intrahepatic biliary system, are cystic duct. 4. A few small air bubbles are noted in the cystic duct and one small air bubble in the lowest right intrahepatic bile duct from the procedure. 5. Dimensions of the common duct calculi cannot be made because there was no measurement calibration during fluoroscopy. Electronically Signed: Abdifatah eVe MD at 17:20 EDT ,
--- NOTE | 2022-01-10 17:15 | OP.PCM_ITS ---
Report of Operation Date of Procedure: 01/10/22 Pre-Operative Diagnosis: 1. Acute cholecystitis 2. Dilated common bile duct with abnormal liver function tests Post-Operative Diagnosis: 1. Acute cholecystitis 2. Choledocholithiasis Surgery/Procedure Performed:: Laparoscopic cholecystectomy with intraoperative cholangiogram Surgeon: Anupam Arriaza parent trainer: Dolores Luke Type of Anesthesia: General/Supplemental Anesthesiologist: Juan Gross Specimen's removed: Gallbladder Estimated Blood Loss (mL): 50 Description of Procedure: After proper identification in the preoperative holding area the patient was brought to the operating room where positioned supine on the operating room table. Preoperatively SCDs were placed and antibiotics had been administered continuously on the floor. General anesthesia was then induced. Patient's abdomen was prepped and draped in usual sterile fashion. A formal timeout was conducted to confirm both patient and the procedure. Procedure was begun with a supraumbilical incision which was extended deeply down to the level of the fascia. The fascia was elevated and incised, as well as the peritoneum. A finger sweep was performed to ensure there were no underlying adhesions and a 12 mm balloon trocar was inserted. Pneumoperitoneum was established at 15 mmHg. 3 additional trocars were placed in the epigastrium and in the right upper quadrant (3 x 5 mm). Inspection of the peritoneum revealed no inadvertent injury to the viscera below. A veil of omentum was lifted and the gallbladder was visualized with a moderate degree of inflammation. The duodenum had been pulled into this inflammatory process so care was taken to gently tease it away from the gallbladder infundibulum. The gallbladder fundus was then grasped and elevated cephalad. Then, using careful dissection the peritoneum was opened and the cystic duct was identified. This duct appeared very thin-walled and we could visualize a number of yellow cholesterol stones within the duct work. I carefully milked these out of the duct and excluded him from falling back in with my grasper. I was able to identify and each branch artery with additional blunt dissection, but did not immediately visualized the cystic artery as there was an abundance of inflammation approaching the gallbladder fossa. Given the presence of stones in the duct work and the degree of inflammation, I elected to perform a cholangiogram at this point. A single clip was placed across the cystic duct distally and a ductotomy was sharply created to facilitate passage of a cholangiocatheter. Using an [place] clamp, a cholangiocatheter was fed into the proximal segment of the cystic duct and clamped into place. Under fluoroscopy a cholangiogram was then obtained showing a standard length cystic duct flowing into a common bile duct with 2 small filling defects at the ampulla and obstructed antegrade flow of contrast into the duodenum. There was, however, retrograde flow through the common hepatic duct into the right and left hepatic ducts. Since the stones appear to be quite small in size, I requested anesthesia to provide 1 mg of glucagon intravenously. We then waited 5 minutes, flushed the duct, and repeated her cholangiogram. Unfortunately, the stones persisted in the distal common duct. With this result, the procedure was terminated and the catheter was withdrawn. The cystic duct was triply clipped and sharply divided. I then fully open the peritoneal lining of the gallbladder laterally and medially and performed additional careful blunt dissection medially. I encountered 2 nominal vessels directly entering the gallbladder, but did not visualize a dominant cystic artery. To increase mobility, I freed some of the gallbladder from the gallbladder fossa with electrocautery and returned to its medial aspect. On this approach, I was able to visualize a diminutive cystic artery within a fold of the peritoneum. Selective electrocautery was used to divide this peritoneal fold and the vessel was clipped and divided with cautery. Given a very large gallbladder and small working space, a grasper had been used to retract the liver from the gallbladder and this resulted in a small inadvertent fracture of the liver capsule medial to the gallbladder fossa. The gallbladder was then removed from the gallbladder fossa with the use of electrocautery and we reinspected the fossa as well as the small liver fracture. There was some initial mild bleeding from the liver injury, but this quickly clotted. Wanting to safeguard against further bleeding, I introduced a small swatch of fibrillar to the peritoneum and placed this into the crack. I spent several minutes observing this area for any ongoing bleeding, but finding none proceeded with the rest of the case. The gallbladder was placed in an Endo Catch bag, its bile was evacuated using a aspiration needle on the suction electric truck operator, and the specimen was removed from the peritoneum via the umbilical port site. Morison's pouch was irrigated and the effluent was suctioned free of the peritoneum. Hemostasis was again confirmed. Pneumoperitoneum was evacuated and the fascia of the 12 mm port sites was closed with #1Vicryl in a [id number] fashion. The skin of each port site was then closed in subcuticular fashion using 4-0 Monocryl. Steri- Strips and bandages were applied as dressings. Patient tolerated the procedure well without any apparent complications. On emergence from their anesthetic the patient was taken to PACU for ongoing recovery. GI was notified of our diagnosis of choledocholithiasis and stated they plan to do ERCP with stone extraction the following day. Complications None Admit VTE Documentation VTE Mechan Device Prophylaxis: SCD's Procedures Digestive 40xxx-49xxx: 60006 Laparo cholecystectomy/graph
--- NOTE | 2022-01-10 20:00 | CON.PCM_ITS ---
Assessment & Plan Assessment/Plan (1) Choledocholithiasis with acute cholecystitis: PLAN: She will undergo ERCP with stone removal. She was explained alternatives, the benefits, risk including outstanding bleeding, infection, sepsis, pe rforation, post ERCP pancreatitis. She will have an ASA of 2. HPI Consult Data Date of Consult: 01/10/22 HPI Narrative Reason for Consultation: choledocholithiasis HPI Narrative: NKECHI BEDOYA, is a 61 F who presented to the emergency room with complaints of epigastric and chest discomfort.? According to the patient, her chest pain was anterior.? No radiation to the arm neck or jaw.? She perceived this as a dull sensation.? According to her, it was waning and waxing and quality.? She also had some right upper quadrant pain.? Positive shortness of breath.? Positive nausea. Patient had initial work-up done in the emergency room.? This included an EKG.? Also imaging was done of the abdomen.? This showed dilated gallbladder with features suggestive of cholecystitis.? She was scheduled for surgery this afternoon however as her EKG was noted to be suspicious, we have been consulted for her preop cardiac risk assessment and evaluation. Patient denies any previous history of heart disease.? Denies any previous history of chest pain either at rest or with exertion.? She does however give history of shortness of breath with exertion.? No orthopnea or PND.? Denies any history of ankle edema. She underwent a cholecystectomy. Doing a cholecystectomy she was discovered to have an abnormal Intra-Op cholangiogram secondary to retained gallstone. Therefore I was consulted for ERCP. [facility] Medical History (Updated 01/11/22 @ 11:[address] Jhoana Carranza DO) Abnormal EKG CPAP (continuous positive airway pressure) dependence Depression GERD (gastroesophageal reflux disease) Migraines Prolonged Q-T interval on ECG Sleep apnea Home Medications esomeprazole magnesium 40 mg capsule,delayed release 40 mg PO DAILY 01/08/22 [History Last Taken 01/08/22] fluoxetine 20 mg capsule 40 mg PO DAILY Check with primary doctor 01/08/22 [History Last Taken 01/08/22] Allergy/AdvReac Type Severity Reaction Status Date / Time No Known Allergies Allergy Verified 01/08/22 23:36 Family History no significant family his Surgical History (Updated 01/08/22 @ 23:38 by Trenton De Jesus) Hx of foot surgery Social History Smoking Status: Never smoker ROS Constitutional Constitutional: Reports as per HPI Physical Exam Const alert, oriented x3, no apparent distress and well nourished Constitutional Narrative: Upper middle-aged white female lying in bed in a dark room, patient appears comfortable, nontoxic HEENT head/scalp atraumatic and moist oral mucous membranes HEENT Narrative: Mallampati 2, no thrush Head and Scalp: normocephalic Resp normal respiratory effort, no retractions, no use of accessory muscles and clear to auscultation bilaterally Auscultation: Negative for crackles, rales, rhonchi or wheezes Cardio regular rate, regular rhythm, S1 normal heart sound, S2 normal heart sound, no murmurs, no rub, no gallops and no clicks GI normal to inspection, nondistended, normoactive bowel sounds, soft to palpation and non-distended GI Narrative: Mild diffuse tenderness most noted at umbilical area, incisions are clean dry and intact with postoperative Steri-Strips in place and no drainage, bowel sounds are good Palpation: tender Extremity no clubbing, cyanosis or edema Extremity Narrative: 2+ pedal pulses Neuro oriented x3, moves all extremities and no focal motor deficits Lab / Micro Data Result Diagrams: 01/11/22 07:43 01/11/22 07:43 Labs: Laboratory Results - last 24 hr 01/11/22 07:43: WBC 7.8, RBC 3.48 L, Hgb 10.7 L, Hct 32.9 L, MCV 94.5, MCH 30.7, MCHC 32.5, RDW Std Deviation 45.3 H, RDW Coeff of Michelle 13.2, Plt Count 365, MPV 10.6, Immature Gran % (Auto) 0.300, Neut % (Auto) 81.1 H, Lymph % (Auto) 12.9 L, [place] % (Auto) 5.7, Eos % (Auto) 0.0, Baso % (Auto) 0.0, Absolute Neuts (auto) 6.4, Absolute Lymphs (auto) 1.01, Nucleated RBC % 0 01/11/22 07:43: Sodium 142, Potassium 4.2, Chloride 110 H, Carbon Dioxide 26.0, Anion Gap 6, BUN 10, Creatinine 0.64, Estim Creat Clear Calc 73.01, Est GFR (MDRD) Af Amer 122, Est GFR (MDRD) Non-Af 101, BUN/Creatinine Ratio 15.7, Glucose 84, Calcium 8.7, Total Bilirubin 0.40, AST 154 H, ALT 235 H, Alkaline Phosphatase 110, Total Protein 6.2 L, Albumin 2.7 L, Globulin 3.5, Albumin/Globulin Ratio 0.8 L 01/11/22 07:43: PT 13.7, INR 1.1, APTT 25.2 Radiology Impression Cholangiogram 01/10/22 15:25 IMPRESSION: 1. Obstruction of the distal common duct by a small calculus. 2. Presence of 2 additional calculi just proximal to the obstructing calculus in the distal common duct. 3. No other calculi noted in the remainder of the common duct, intrahepatic biliary system, are cystic duct. 4. A few small air bubbles are noted in the cystic duct and one small air bubble in the lowest right intrahepatic bile duct from the procedure. 5. Dimensions of the common duct calculi cannot be made because there was no measurement calibration during fluoroscopy. Electronically Signed: Abdifatah Vee MD at 17:20 EDT , Endo Retro Cholangiopancreatogram 01/11/22 09:50 IMPRESSION: ERCP as described above. Electronically Signed: Eric Sandoval MD at 14:12 EDT , Charges/Coding Visit Charges Inpatient E&M: 82523 Init Hosp L2
[2022-01-10] MEDS: FLUoxetine 20 MG Capsule 40 MG PO (21:57)
[2022-01-11] VITALS (19 sets, daily range): BP systolic 116–145; BP diastolic 64–82; PULSE 54–79; RESP 12–18; TEMP 36.5–37.8; O2SAT 92–100
--- NOTE | 2022-01-11 05:55 | EKG12_ITS ---
Test Reason : AM EKG Blood Pressure : / mmHG Vent. Rate : 053 BPM Atrial Rate : 053 BPM P-R Int : 134 ms QRS Dur : 070 ms QT Int : 466 ms P-R-T Axes : 068 -23 -23 degrees QTc Int : 437 ms Sinus bradycardia Low voltage QRS Nonspecific T wave abnormality Abnormal ECG When compared with ECG of 10-JAN-2022 05:47, MANUAL COMPARISON REQUIRED, DATA IS UNCONFIRMED Confirmed by STAR FARIA, JESSICA ([id number]), publications editor SEJAL NIEVES ([id number]) on 01/14/2022 1:05:42 PM Referred By: Confirmed By:JESSICA GRAVES MD
[2022-01-11] MEDS: 0.9% Normal Saline 1,000 ML 120 ML IV ×2 (06:11→14:15)
[2022-01-11 08:16] LABS: Absolute Lymphocyte Count 1.01 X10^3/uL (0.83-4.51); Absolute Neutrophil Count 6.4 X10^3/uL (2.0-7.7); Hematocrit 32.9 % (37-47); Hemoglobin 10.7 g/dL (12.0-15.0); Lymphocyte # 1.01 X10^3/ul (0.83-4.51); Lymphocyte % 12.9 % (19-41); Mean Corp Hgb Conc 32.5 g/dL (32-36); Mean Corpuscular Hgb 30.7 pg (27.0-32.0); Mean Corpuscular Volume 94.5 fL (81-99); Mean Platelet Vol. 10.6 fl (6.2-12.0); Monocyte# 0.45 X10^3/uL; Monocyte% 5.7 % (0-10); NRBC Flagged by Analyzer 0 % (0-5); Neutrophil # 6.35 X10^3/uL (2.7-7.7); Neutrophil % 81.1 % (47-70); Platelet Count 365 K/mm3 (150-450); RBC Distribution Width CV 13.2 % (11.6-14.6); RBC Distribution Width SD 45.3 fl (35.1-43.9); Red Blood Count 3.48 M/mm3 (4.2-5.4); White Blood Count 7.8 K/mm3 (4.4-11.0)
[2022-01-11] MEDS: Acetaminophen 325 MG Tablet 650 MG PO (08:35)
[2022-01-11 08:37] LABS: International Normalized Ratio 1.1; Partial Thromboplast Time 25.2 Seconds (24.1-36.2); Prothrombin Time (Protime)PT. 13.7 SECONDS (11.7-14.9)
--- NOTE | 2022-01-11 08:43 | PN.SURG_ITS ---
Subjective Subjective Patient seen and examined during AM rounds. She reports some soreness, but states that she has resolution of her right upper quadrant pain. She expresses relief that she is through her surgery. She confirms that she has talked with GI and there are plans to perform an ERCP later today. Objective Data Objective Data Vital Signs: Vital Signs Temp Pulse Resp BP Pulse Ox O2 Del Method O2 Flow Rate 98.4 F 58 L 14 133/70 H 100 Nasal Cannula 1 01/11/22 08:26 01/11/22 08:26 01/11/22 08:26 01/11/22 08:26 01/11/22 08:26 01/11/22 08:26 01/11/22 08:26 Oxygen Flow Rate (L/min) 1 Oxygen Delivery Method Nasal Cannula Weight: 142 lb 9 oz Body Mass Index (BMI) 26.0 Intake & Output: Intake and Output for Last 24 Hours 01/09/22 01/10/22 01/11/22 23:59 23:59 23:59 Intake Total 2782 / 2782 2021. / 220 / 220 Balance 2782 / 2782 / 220 / 220 Lab / Micro Data Result Diagrams: 01/11/22 07:43 01/10/22 07:30 Labs: Laboratory Results - last 24 hr 01/11/22 07:43: WBC 7.8, RBC 3.48 L, Hgb 10.7 L, Hct 32.9 L, MCV 94.5, MCH 30.7, MCHC 32.5, RDW Std Deviation 45.3 H, RDW Coeff of Michelle 13.2, Plt Count 365, MPV 10.6, Immature Gran % (Auto) 0.300, Neut % (Auto) 81.1 H, Lymph % (Auto) 12.9 L, [place] % (Auto) 5.7, Eos % (Auto) 0.0, Baso % (Auto) 0.0, Absolute Neuts (auto) 6.4, Absolute Lymphs (auto) 1.01, Nucleated RBC % 0 01/11/22 07:43: PT 13.7, INR 1.1, APTT 25.2 Radiography Diagnostic Testing: Radiology Impression Cholangiogram 01/10/22 15:25 IMPRESSION: 1. Obstruction of the distal common duct by a small calculus. 2. Presence of 2 additional calculi just proximal to the obstructing calculus in the distal common duct. 3. No other calculi noted in the remainder of the common duct, intrahepatic biliary system, are cystic duct. 4. A few small air bubbles are noted in the cystic duct and one small air bubble in the lowest right intrahepatic bile duct from the procedure. 5. Dimensions of the common duct calculi cannot be made because there was no measurement calibration during fluoroscopy. Electronically Signed: Abdifatah Vee MD at 17:20 EDT , Physical Exam Const oriented x3 and no apparent distress Resp normal respiratory effort Resp Narrative: Nasal cannula in place GI GI Narrative: Nondistended, operative dressings in place with small amount of bloody strikethrough and subxiphoid site?this appears to be stable as it is not exceeded pen line demarcation made yesterday. Patient has some expected tenderness directly about port sites with palpation but otherwise unremarkable. Assessment & Plan Assessment/Plan (1) Choledocholithiasis with acute cholecystitis: PLAN: Planned ERCP with GI for stone extraction later today (2) Abnormal EKG: PLAN: Patient is a 61-year-old female admitted with diagnosis of acute cholecystitis and had some T wave inversion on her intake EKG that normalized. Currently had echo that showed normal ejection fraction and yesterday underwent a nuclear med perfusion scan that did not show any concern for ischemia. T herefore she was taken to the operating room yesterday afternoon for laparoscopic cholecystectomy. (3) Acute cholecystitis: PLAN: Patient is postoperative day 1 from laparoscopic cholecystectomy with intraoperative cholangiogram. Patient had some mild bleeding from a fracture in her liver that occurred while removing her gallbladder. Her hemoglobin however remained stable today. During her cholangiogram I did find a couple of common duct stones. These were refractory to treatment with glucagon so an ERCP has been requested from GI. From a surgical standpoint, if ERCP goes forth in uncomplicated fashion patient could be eligible for discharge as early as later today. She will need improved tolerance of a diet and be weaned from her supplemental oxygen requirement though prior. Charges/Coding Visit Charges Inpatient E&M: 86728 Subs Hosp L2
[2022-01-11 08:55] LABS: ALB/GLOB Ratio 0.8 RATIO (0.9-2.4); AST(SGOT) 154 U/L (15-37); Alanine Aminotransfer ALT/SGPT 235 U/L (13-56); Albumin, Serum 2.7 g/dL (3.2-5.0); Alkaline Phosphatase 110 U/L (45-117); Anion Gap 6 (5-15); BUN 10 mg/dL (7-18); BUN/Creat Ratio 15.7 RATIO (10-20); Calcium,Total 8.7 mg/dL (8.5-10.1); Chloride 110 mmol/L (98-107); Creatinine, Serum 0.64 mg/dL (0.55-1.02); EST Glomerular Filtration Rate 101 mL/min (>60); Est Glom Filt Rate - Afr Amer 122 mL/min (>60); Estimated Creatinine Clearance 73.01 ml/min; Globulin 3.5 g/dL (2.2-4.2); Glucose 84 mg/dL (74-106); Potassium 4.2 mmol/L (3.5-5.1); Protein, Total 6.2 g/dL (6.4-8.2); Sodium Level 142 mmol/L (136-145)
--- NOTE | 2022-01-11 09:17 | NURSING ---
Report given to PACU for room 120.
[2022-01-11] MEDS: 0.9% Saline Lock 10 ML Syringe IV (09:40)
[2022-01-11] MEDS: Lactated Ringers 1,000 ML 15 ML IV (09:41)
--- NOTE | 2022-01-11 09:50 | RAD_ITS ---
[place] ERCP Biliary and Pancreatic Ductal Systems INDICATION:61 years old Female presenting with PAIN. TECHNIQUE: 5 fluoroscopic images are submitted from a procedure. FINDINGS: Endoscopy and cannulation were carried out by the referring physician. 5 fluoroscopic images were obtained. The last image demonstrates common bile duct stent. The examination was not performed for diagnostic purposes. The fluoroscopy time was 45.1 seconds. No radiologist was present for this procedure. Please see procedure note for further details. RAD/ERCP Biliary/Pancreas IMPRESSION: ERCP as described above. Electronically Signed: Eric Sandoval MD at 14:12 EDT ,
--- NOTE | 2022-01-11 10:58 | PCM.PN.HOSP ---
Subjective Subjective Surgery completed last evening and it went well but unfortunately patient was found to have choledocholithiasis and retrieval was not possible intraoperatively. ERCP pending for today. Patient states she is having some mild incisional abdominal pain predominantly at her umbilical incision but overall is feeling okay. Is passing flatus. Denies any nausea or vomiting. Objective Data Objective Data Vital Signs: Vital Signs Temp Pulse Resp BP Pulse Ox O2 Del Method O2 Flow Rate 100.1 F H 73 16 145/82 H 92 Room Air 1 01/11/22 10:50 01/11/22 10:50 01/11/22 10:50 01/11/22 10:50 01/11/22 10:50 01/11/22 10:50 01/11/22 08:26 Oxygen Flow Rate (L/min) 1 Oxygen Delivery Method Room Air Weight: 64.665 kg Body Mass Index (BMI) 26.0 Intake & Output: Intake and Output for Last 24 Hours 01/09/22 01/10/22 01/11/22 23:59 23:59 23:59 Intake Total 2782 / 2782 / 220 / 220 Balance 2782 / 2782 220 / 220 Lab / Micro Data Result Diagrams: 01/11/22 07:43 01/11/22 07:43 Labs: Laboratory Results - last 24 hr 01/11/22 07:43: WBC 7.8, RBC 3.48 L, Hgb 10.7 L, Hct 32.9 L, MCV 94.5, MCH 30.7, MCHC 32.5, RDW Std Deviation 45.3 H, RDW Coeff of Michelle 13.2, Plt Count 365, MPV 10.6, Immature Gran % (Auto) 0.300, Neut % (Auto) 81.1 H, Lymph % (Auto) 12.9 L, [place] % (Auto) 5.7, Eos % (Auto) 0.0, Baso % (Auto) 0.0, Absolute Neuts (auto) 6.4, Absolute Lymphs (auto) 1.01, Nucleated RBC % 0 01/11/22 07:43: Sodium 142, Potassium 4.2, Chloride 110 H, Carbon Dioxide 26.0, Anion Gap 6, BUN 10, Creatinine 0.64, Estim Creat Clear Calc 73.01, Est GFR (MDRD) Af Amer 122, Est GFR (MDRD) Non-Af 101, BUN/Creatinine Ratio 15.7, Glucose 84, Calcium 8.7, Total Bilirubin 0.40, AST 154 H, ALT 235 H, Alkaline Phosphatase 110, Total Protein 6.2 L, Albumin 2.7 L, Globulin 3.5, Albumin/Globulin Ratio 0.8 L 01/11/22 07:43: PT 13.7, INR 1.1, APTT 25.2 Radiography Diagnostic Testing: Radiology Impression Cholangiogram 01/10/22 15:25 IMPRESSION: 1. Obstruction of the distal common duct by a small calculus. 2. Presence of 2 additional calculi just proximal to the obstructing calculus in the distal common duct. 3. No other calculi noted in the remainder of the common duct, intrahepatic biliary system, are cystic duct. 4. A few small air bubbles are noted in the cystic duct and one small air bubble in the lowest right intrahepatic bile duct from the procedure. 5. Dimensions of the common duct calculi cannot be made because there was no measurement calibration during fluoroscopy. Electronically Signed: Abdifatah Vee MD at 17:20 EDT , Physical Exam Const alert, oriented x3, no apparent distress and well nourished Constitutional Narrative: Upper middle-aged white female lying in bed in a dark room, patient appears comfortable, nontoxic HEENT head/scalp atraumatic and moist oral mucous membranes HEENT Narrative: Mallampati 2, no thrush Head and Scalp: normocephalic Resp normal respiratory effort, no retractions, no use of accessory muscles and clear to auscultation bilaterally Auscultation: Negative for crackles, rales, rhonchi or wheezes Cardio regular rate, regular rhythm, S1 normal heart sound, S2 normal heart sound, no murmurs, no rub, no gallops and no clicks GI normal to inspection, nondistended, normoactive bowel sounds, soft to palpation and non-distended GI Narrative: Mild diffuse tenderness most noted at umbilical area, incisions are clean dry and intact with postoperative Steri-Strips in place and no drainage, bowel sounds are good Palpation: tender Extremity no clubbing, cyanosis or edema Extremity Narrative: 2+ pedal pulses Neuro oriented x3, moves all extremities and no focal motor deficits Assessment & Plan Assessment/Plan (1) Abdominal pain: (2) Cholelithiasis: (3) Acute cholecystitis: (4) Choledocholithiasis with acute cholecystitis: (5) Acute anemia: PLAN: Plan Acute cholecystitis -Plan is for cholecystectomy as soon as cardiac work-up is complete -Cholecystectomy completed on 01/11/2022 however patient had choledocholithiasis and intraoperative retrieval of stone was not possible -Patient remains n.p.o. -Continue I-S to avoid postoperative atelectasis -Care per general surgery--> Dr. Arriaza following Choledocholithiasis -ERCP pending for today -Not on expectedly her liver enzymes are up slightly today compared to yesterday however alk phos is normal and so his bilirubin -Gastroenterology following -N.p.o. for now with post procedural diet per general surgery and gastroenterology Acute anemia -Likely delusional/postoperative -Stable at 10.7 with baseline of 11-13 -Continue to monitor Abnormal EKG -Initial EKG showed inverted T waves in the lateral leads with repeat EKG very subtle differences -2 cardiac enzymes thus far both were normal -Cardiac enzymes are negative -Echocardiogram diagram shows normal EF with no wall motion abnormality -Stress test recommended by cardiology and shows no pharmacologic mild cardial perfusion abnormalities or ischemia GERD -Continue PPI Depression -Continue fluoxetine DVT prophylaxis -per primary service CODE STATUS -Full code Charges/Coding Visit Charges OBSV E&M: 90028 Initial observation care L2
[2022-01-11] MEDS: FLU VACC QS2022-23(6MOS UP)/PF 60 MCG/0.5 ML SYRINGE IM (16:54)
--- NOTE | 2022-01-11 17:30 | PCM.DC.SUM ---
Providers Date of Admission: 01/09/22 Primary Care Physician: GINGER Payne Consultations 01/09/22 12:42 Consult: Cardiology Routine Consulting Provider: Brian Hoffman Reason for Consult: pre op- abnormal EKG EMERGENT Consult: Yes MD Notified: Yes Date Notified: 01/09/22 Time Notified: 12:42 Method of Notification: Verbal 01/09/22 14:37 Consult: Hospitalist Routine Consulting Provider: Jhoana Carranza Reason for Consult: abnormal ekg EMERGENT Consult: No MD Notified: Yes Date Notified: 01/09/22 Time Notified: 12:55 Method of Notification: Verbal 01/10/22 17:27 Consult: Gastroenterology Routine Consulting Provider: [facility] Reason for Consult: Choledocholithiasis EMERGENT Consult: No Notified: Yes Date Notified: 01/10/22 Time Notified: 17:27 Method of Notification: Verbal Reason For Visit: ACUTE CHOLECYSTITIS Diagnosis Discharge Diagnosis (1) Choledocholithiasis with acute cholecystitis: Status: Acute Code(s): K80.42 - Calculus of bile duct with acute cholecystitis without obstruction Plan: Planned ERCP with GI for stone extraction later today Medications at Discharge Home Medications esomeprazole magnesium 40 mg capsule,delayed release 40 mg PO DAILY 01/08/22 fluoxetine 20 mg capsule 40 mg PO DAILY Check with primary doctor 01/08/22 oxycodone 5 mg tablet 5 mg PO Q4H PRN PRN Pain Score 1-10/10 3 days #10 tabs 01/11/22 Hospital Course Operations cholecystecomy (Cholangiography on 01/10/2022) Procedures 2-D Echocardiogram (01/09/2022) and Nuclear stress test (01/10/2022) Summary of Care Provided Hospital Course: Patient is a 61-year-old female who presented to [facility] emergency room on 01/08/2022 with complaints of retrosternal versus epigastric/right upper quadrant discomfort. Her intake EKG shows some T wave abnormality, but the focus of her work-up centered around her gallbladder after CT of the abdomen demonstrated distended gallbladder with a dilated common bile duct. Dr. Lopez was contacted at this point and requested a reflex ultrasound for further characterization of the gallbladder. CT findings were confirmed and the patient was admitted to general surgery with plans for laparoscopic cholecystectomy with cholangiography on 01/09/2022. However, noting patient's EKG abnormalities preoperatively, anesthesia postpone patient's procedure and requested a cardiac evaluation. At this point both the hospitalist service and cardiology were consulted. Troponins were trended while a echocardiogram was obtained. Enzyme levels remained within normal limits and echo returned as remarkable for mild to moderate mitral valve insufficiency but ejection fraction was normal. At this point cardiology gave a conditional clearance for surgery if the patient warranted more emergent intervention, however, they also recommended Lexiscan for more complete evaluation and suggested any intervention would be accepting a unknown risk. With the patient otherwise clinically stable, continuous antibiotic infusion was maintained and her labs were trended as she was then seen through a Lexiscan the following day, 01/10/2022. This pharmacologic nuclear medicine stress test returned as no evidence of obvious ischemia and the patient was formally cleared by cardiology for an operation. Thus she was taken to the operating room the same day for a laparoscopic cholecystectomy with intraoperative cholangiogram. It is noted that she had a elevation of her LFTs the morning of 01/10/2022 and, indeed, during her otherwise uncomplicated procedure, cholangiogram showed evidence of choledocholithiasis. Intraoperative glucagon was administered, but gallstones remained impacted in the common bile duct at the ampulla. Therefore gastroenterology was consulted and the patient underwent ERCP with stone extraction on 01/11/2022. She was seen at a couple different points throughout the day on 01/11/2022 and reported significant improvements in her abdominal discomfort. She was advanced to a regular diet following her ERCP without difficulty and was weaned from her supplemental oxygen. With these further improvements, she expressed a readiness and comfort with discharge to home and this was granted after reviewing postoperative expectations and plans for outpatient follow-up in 7 to 10 days. Physical Exam Const alert, oriented x3 and no apparent distress General Appearance: cooperative Resp normal respiratory effort GI GI Narrative: Nondistended, operative dressings intact with stable amount of bloody drainage over subxiphoid port site (otherwise clean). Patient minimal tenderness with palpation about the port sites and was otherwise comfortable with the exam Weight / BMI Weight Weight: 142 lb 9 oz Body Mass Index (BMI) 26.0 ABG / Lab / Microbiology Data Result Diagrams: 01/11/22 07:43 01/11/22 07:43 Laboratory: Laboratory Results - last 24 hr 01/11/22 07:43: WBC 7.8, RBC 3.48 L, Hgb 10.7 L, Hct 32.9 L, MCV 94.5, MCH 30.7, MCHC 32.5, RDW Std Deviation 45.3 H, RDW Coeff of Michelle 13.2, Plt Count 365, MPV 10.6, Immature Gran % (Auto) 0.300, Neut % (Auto) 81.1 H, Lymph % (Auto) 12.9 L, Sierra % (Auto) 5.7, Eos % (Auto) 0.0, Baso % (Auto) 0.0, Absolute Neuts (auto) 6.4, Absolute Lymphs (auto) 1.01, Nucleated RBC % 0 01/11/22 07:43: Sodium 142, Potassium 4.2, Chloride 110 H, Carbon Dioxide 26.0, Anion Gap 6, BUN 10, Creatinine 0.64, Estim Creat Clear Calc 73.01, Est GFR (MDRD) Af Amer 122, Est GFR (MDRD) Non-Af 101, BUN/Creatinine Ratio 15.7, Glucose 84, Calcium 8.7, Total Bilirubin 0.40, AST 154 H, ALT 235 H, Alkaline Phosphatase 110, Total Protein 6.2 L, Albumin 2.7 L, Globulin 3.5, Albumin/Globulin Ratio 0.8 L 01/11/22 07:43: PT 13.7, INR 1.1, APTT 25.2 Radiography Diagnostic Testing: Radiology Impression Endo Retro Cholangiopancreatogram 01/11/22 09:50 IMPRESSION: ERCP as described above. Electronically Signed: Eric Sandoval MD at 14:12 EDT , Meaningful Use Info Meaningful Use Diagnoses (Choose all that apply): None applicable Discharge Plan Admission Admit Date/Time: 01/09/22 05:50 Primary Reason for Your Visit: Acute cholecystitis Attending Provider: Raquel Lopez Primary Care Provider: Nicki Dickens NP Consulting Providers: Brian Hoffman ; Jhoana Carranza Instructions Patient Instructions: Cholecystectomy Dc Discharge Orders/Prescriptions Prescriptions: New oxycodone 5 mg Tablet 5 mg PO Q4H PRN PRN (Reason: Pain Score 1-10/10) 3 Days Qty: 10 0RF Continued esomeprazole magnesium 40 mg capsule,delayed release(DR/EC) 40 mg PO DAILY Label Comments: TAKE 1 CAPSULE BY MOUTH ONCE DAILY fluoxetine 20 mg capsule 40 mg PO DAILY Label Comments: TAKE 2 CAPSULES BY MOUTH ONCE DAILY BEFORE NOON Referrals / Follow Up: Nicki Dickens NP, INCOME TAX EXPERT-C [Primary Care Provider] - Donna Roth [Non-Staff] - Disposition Disposition (needs filled in before D/C Order can be placed): Home, Self Care Charges/Coding Visit Charges Inpatient E&M: 62902 Disch Hosp
--- NOTE | 2022-01-11 17:31 | PCM.DC ---
Discharge Instructions Diet Discharge Diet: Low fat / Low cholesterol Activity Discharge Activity: May Not Drive (May not drive while taking narcotic pain medications) and May Shower (May begin showering 48hours postop. Please avoid baths or submerging surgical incisions before skin is completely healed.) May shower in (days): 2 May resume sexual activity in: 2 weeks Ice area for (Minutes): 20 Lifting Restrictions: Limit lifting to <15lbs for 2 weeks following surgery Dressing / Incision Call your doctor if your incision/area has: Sudden Increased Bleeding, Increased Pain/ Swelling, Increased Redness, Foul Smelling Discharge and Swelling at the incision site Call your doctor if you observe: Fever of 101 or Higher, Inability to urinate, Inability to have a bowel movement and Uncontrolled pain Suture Line Care: Avoid Pulling/Pushing Remove Dressing in: 2 days (Please leave steri strips (medical tape) in place until they fall off spontaneously or are removed at your follow-up appointment) Cleanse incision/area with: Keep Dressing Clean & Dry Additional Dressing/Incision Instructions:: Please leave Steri-Strips intact until they fall off spontaneously or are taken off at your follow-up visit Follow Up Care Please Follow Up With: Anupam Arriaza MD When: 7 to 10 days postop Test Results: Test results from this visit will be discussed in further detail at your follow-up appointment, if applicable. Discharge Plan Admission Admit Date/Time: 01/09/22 05:50 Primary Reason for Your Visit: Acute cholecystitis Attending Provider: Raquel Lopez Primary Care Provider: Nicki Dickens NP Consulting Providers: Brian Hoffman ; Jhoana Carranza Instructions Patient Instructions: Cholecystectomy Dc Discharge Orders/Prescriptions Prescriptions: New oxycodone 5 mg Tablet 5 mg PO Q4H PRN PRN (Reason: Pain Score 1-10/10) 3 Days Qty: 10 0RF Continued esomeprazole magnesium 40 mg capsule,delayed release(DR/EC) 40 mg PO DAILY Label Comments: TAKE 1 CAPSULE BY MOUTH ONCE DAILY fluoxetine 20 mg capsule 40 mg PO DAILY Label Comments: TAKE 2 CAPSULES BY MOUTH ONCE DAILY BEFORE NOON Referrals / Follow Up: Nicki Dickens NP, INCIDENT RESPONSE LEAD-C [Primary Care Provider] - Donna Roth [Non-Staff] - Disposition Disposition (needs filled in before D/C Order can be placed): Home, Self Care
== END 2022-01-11 19:30 | disposition home or self-care (01) ==
LOC: ED 01-09 06:04 → MS3 01-09 06:16 → PCU 01-09 15:52
PROVIDERS: Anesthesiology; Internal Medicine; Internal Medicine Cardiovascular Disease; Internal Medicine Gastroenterology; Surgery; Admitting Provider Surgery; Emergency Provider Emergency Medicine; PCP Nurse Practitioner Adult Health; Visit Provider Surgery
PROC: (CPT 47610; principal; 2022-01-10 09:15)
DX: K80.66 Calculus of gallbladder and bile duct with acute and chronic cholecystitis without obstruction (principal); R06.02 Shortness of breath; R94.31 Abnormal electrocardiogram [ECG] [EKG]; D64.9 Anemia, unspecified; I34.0 Nonrheumatic mitral (valve) insufficiency; Z86.16 Personal history of COVID-19; G47.30 Sleep apnea, unspecified; F32.A Depression, unspecified; K21.9 Gastro-esophageal reflux disease without esophagitis; Z79.899 Other long term (current) drug therapy; Z23 Encounter for immunization
CPT/HCPCS: 47563; 43274; 43264; 36415; 71045; 74177; 74300; 74330; 76000; 76705; 78452; 80053; 83690; 83735; 84484; 85025; 85379; 85610; 85730; 88304; 93005; 93017; 93306; 96361; 96365; 96366; 96367; 96375; 99218; 99251; 99285; A9500; J7030; J7120; Q9967; 90686; A4216; G0378; G0463; J1610; J2405; J2785; J3490

== ENCOUNTER 2022-10-18 09:44 | Emergency (ER) | payer OTHER, SELFPAY ==
[2022-10-18 09:46] VITALS: BP 127/91; PULSE 115; RESP 18; TEMP 35.7; O2SAT 97; BMI 27.4
--- NOTE | 2022-10-18 10:05 | EX.ED.DYSGE1 ---
HPI History of Present Illness Chief Complaint: Bite Detail of Chief Complaint: Left hand wound Informant: patient Onset/Context/Timing Onset: Yesterday Narrative Narrative: Patient presents secondary to possible spider bite to her left hand. She noted an itchy red lesion to the palm of her left hand yesterday. She states she got a little bit of pus out of the area and today has noted a red streak up to her wrist. No fever or chills. No definite injury. PFSH PFSH Medical History Abnormal EKG CPAP (continuous positive airway pressure) dependence Depression GERD (gastroesophageal reflux disease) Migraines Prolonged Q-T interval on ECG Sleep apnea Home Medications esomeprazole magnesium 40 mg capsule,delayed release 40 mg PO DAILY 01/08/22 [History Last Taken 01/08/22] fluoxetine 20 mg capsule 40 mg PO DAILY Check with primary doctor 01/08/22 [History Last Taken 01/08/22] cephalexin 500 mg capsule 500 mg PO Q6 #40 CAPSULES 10/18/22 [Rx Last Taken Unknown] sulfamethoxazole 800 mg-trimethoprim 160 mg tablet (Bactrim DS) 1 tab PO BID 10 days #20 tabs 10/18/22 [Rx Last Taken Unknown] Allergy/AdvReac Type Severity Reaction Status Date / Time No Known Allergies Allergy Verified 01/20/22 08:42 Surgical History Hx of foot surgery Social History Smoking Status: Never smoker ROS ROS ED Constitutional Constitutional ED: Denies chills or fever(s) Eyes Eyes: Denies discharge from eye(s) ENT ENT ED: Denies discharge from eye(s), rhinorrhea or sore throat Cardiovascular Cardiovascular: Denies chest pain Respiratory/Chest Respiratory/Chest: Denies cough or dyspnea Gastrointestinal Gastrointestinal: Denies abdominal pain, nausea or vomiting Musculoskeletal Musculoskeletal: Reports extremity pain; Denies back pain Integumentary Reports abscess; Denies Abrasions or rash Neurologic Neurologic: Denies headache(s) or weakness Psychiatric Psychiatric: Denies anxiety or depression Allergic/Immunologic Allergic/Immunologic ED: Denies lip swelling or urticaria EXAM Physical Exam Const Vital Signs: 10/18/22 09:46 Temperature 96.3 F L Temperature Source Temporal Pulse Rate 115 H Respiratory Rate 18 Blood Pressure 127/91 H Blood Pressure Mean 103 Pulse Ox 97 Oxygen Delivery Method Room Air Positive well nourished and well developed General Appearance ED: well developed HEENT Reports moist mucous membranes Eyes PERRL and EOMs intact bilaterally Chest Wall inspection of chest normal and palpation of chest normal Resp normal respiratory effort and clear to auscultation bilaterally Cardio regular rate, regular rhythm and no murmurs GI non-tender Extremity Extremity Narrative: Cutaneous abscess to the palm of left hand measuring approximately 1 x 1/2 cm. Lymphangitic streak noted up to the volar left wrist. Full range of motion of the joint without difficulty. Neuro oriented x3 Psych mental status grossly normal MDM MDM MDM Narrative Medical decision making narrative: Let was applied topically to the palm of the hand. 20 minutes later 1 cc of 1% lidocaine is infused locally. Wound is cleansed. Stab incision is made with a #11 blade. Blood returns but no evidence of pus at this time. Wound is cleansed and dressing applied. Area of erythema outlined with surgical marker so she can monitor this at home. Patient will be treated with Bactrim and Keflex, first dose given here. Return instructions given. Discharge Plan Triage Chief Complaint: Bite Other Complaint: Wound ED Provider: Kathy Carnes Dx/Rx/DC Orders Clinical Impression: Cutaneous abscess Instructions: ED Abscess Incision And Drainage Prescriptions: New sulfamethoxazole-trimethoprim [Bactrim DS] 800-160 mg tablet 1 tab PO BID 10 Days Qty: 20 0RF cephalexin 500 mg capsule 500 mg PO Q6 Qty: 40 0RF No Action esomeprazole magnesium 40 mg capsule,delayed release(DR/EC) 40 mg PO DAILY Patient Comments: TAKE 1 CAPSULE BY MOUTH ONCE DAILY fluoxetine 20 mg capsule 40 mg PO DAILY Patient Comments: TAKE 2 CAPSULES BY MOUTH ONCE DAILY BEFORE NOON Primary Care Provider: Nicki Dickens NP Referrals: Nicki Dickens NP, COMPUTATIONAL LINGUIST-C [Primary Care Provider] - 1-2 Weeks Disposition Disposition: Home, Self Care Discharge Date/Time: 10/18/22 11:00
[2022-10-18] MEDS: Lidocaine/Epi/Tetracaine 50 ML 1 APPLIC TOPICAL (10:10)
[2022-10-18] MEDS: Smz/Tmp Ds Tablet 1 TABLET PO (10:11)
[2022-10-18] MEDS: Lidocaine 1% (20 ml mdv) 20 ML Vial INFILT (10:11)
[2022-10-18] MEDS: Cephalexin 500 MG Capsule PO (10:11)
== END 2022-10-18 11:00 | disposition home or self-care (01) ==
PROVIDERS: Emergency Provider Emergency Medicine; PCP Nurse Practitioner Adult Health; Visit Provider Emergency Medicine
DX: L02.512 Cutaneous abscess of left hand (principal); G47.30 Sleep apnea, unspecified
CPT/HCPCS: 99283

== ENCOUNTER 2023-12-13 01:16 | Emergency (ER) | payer OTHER, SELFPAY ==
[2023-12-13 01:17] VITALS: BP 138/79; PULSE 68; RESP 16; TEMP 36.6; O2SAT 96; BMI 28.3
[2023-12-13 01:20] VITALS: BP 138/79; PULSE 68; RESP 16; TEMP 36.6; O2SAT 96
--- NOTE | 2023-12-13 01:37 | RAD_ITS ---
INDICATION: HEADACHE, NAUSEA, BODY ACHES AND SLIGHT COUGH. EXAMINATION/TECHNIQUE: X-RAY - XR Chest 2 Views COMPARISON: 01/08/2022 chest radiograph. Findings: Frontal and lateral views of the chest. LUNG PARENCHYMA: No acute focal airspace disease or mass lesion. PLEURA: No pleural effusion. No pneumothorax. HEART/GREAT VESSELS: Cardiomediastinal silhouette is unremarkable. BONES: Osseous structures are unremarkable for age. Right upper quadrant biliary stent in place. RAD/Chest PA and Lateral IMPRESSION: Chest with no acute disease. Electronically Signed: Mendez Terrell MD at 4:05 EDT ,
[2023-12-13] MEDS: 0.9% Normal Saline (1000mL) 1,000 ML 999 ML IV (01:54)
[2023-12-13] MEDS: dexAMETHasone 10 MG/ML Vial IV (01:55)
--- NOTE | 2023-12-13 02:07 | EX.ED.DYSGE1 ---
HPI History of Present Illness Chief Complaint: General Illness Informant: patient Narrative Narrative: Patient is a 63-year-old female with past medical history of depression and GERD. She states for the past 2 days she has had subjective fevers and chills with congestion slight cough and headache. She reports there is been an increase in fatigue as well. She reports that grandkids have been sick with some type of head cold and a coworker has been diagnosed with COVID recently. 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 and when she got up this evening to go to work had such severe fatigue that she did not feel that she was safe to work and therefore comes to the hospital for evaluation [facility] Medical History Prolonged Q-T interval on ECG Abnormal EKG GERD (gastroesophageal reflux disease) Depression CPAP (continuous positive airway pressure) dependence Sleep apnea Migraines Home Medications ?Medication ?Instructions ?Recorded ?Last Taken ?Type fluoxetine 20 mg capsule 20 mg PO BID Check with primary 01/08/22 01/08/22 History doctor Allergy/AdvReac Type Severity Reaction Status Date / Time No Known Allergies Allergy Verified 12/13/23 01:20 Surgical History Hx of foot surgery Social History Smoking Status: Never smoker ROS [facility] ED Constitutional Constitutional ED: Reports chills, fever(s) and subjective Eyes Eyes: Denies blurry vision or change in vision ENT ENT ED: Reports rhinorrhea and sore throat Cardiovascular Cardiovascular: Denies chest pain Respiratory/Chest Respiratory/Chest: Reports cough; Denies dyspnea Gastrointestinal Gastrointestinal: Reports nausea; Denies abdominal pain, diarrhea or vomiting Genitourinary Genitourinary ED: Reports urinary frequency; Denies dysuria Musculoskeletal Musculoskeletal: Reports myalgias Integumentary Denies rash Neurologic Neurologic: Reports headache(s) Hematologic/Lymphatic Hematologic/Lymphatic: Denies easy bleeding or easy bruising EXAM Physical Exam Const Vital Signs: 12/13/23 01:17 12/13/23 01:20 12/13/23 01:21 Temperature 97.8 F 97.8 F Temperature Source Oral Oral Pulse Rate 68 68 Respiratory Rate 16 16 Respiratory Effort Normal Non-Labored Respiratory Pattern Normal Blood Pressure 138/79 H 138/79 H Blood Pressure Mean 98 98 Pulse Ox 96 96 Oxygen Delivery Method Room Air Room Air 12/13/23 02:20 12/13/23 03:00 12/13/23 04:00 Temperature 97.7 F L 98.1 F 98.7 F Temperature Source Oral Oral Oral Pulse Rate 70 75 60 Respiratory Rate 16 16 16 Respiratory Effort Respiratory Pattern Blood Pressure 132/89 H 120/91 H 127/75 H Blood Pressure Mean 103 100 92 Pulse Ox 98 97 Oxygen Delivery Method Room Air Room Air 12/13/23 04:07 Temperature 98.5 F Temperature Source Pulse Rate 60 Respiratory Rate 16 Respiratory Effort Respiratory Pattern Blood Pressure 125/75 H Blood Pressure Mean 91 Pulse Ox 98 Oxygen Delivery Method Positive well nourished and well developed General Appearance ED: well developed; Negative for pallor HEENT HEENT Narrative: Cobblestoning is noted in the posterior pharynx consistent with sinus drainage without airway edema or compromise No tongue or lip swelling noted No secondary findings in the posterior pharynx to suggest infection Eyes PERRL and EOMs intact bilaterally General Eye ED: Negative for scleral icterus Neck supple Neck Narrative: No nuchal rigidity or meningeal signs Resp normal respiratory effort and clear to auscultation bilaterally Resp Narrative: Breath sounds are diminished throughout but overall clear to auscultation without signs of respiratory distress Cardio regular rate and regular rhythm GI normal to inspection, nondistended, normoactive bowel sounds, non-tender, non-distended and no masses GI Narrative: No voluntary guarding or rigidity or pulsatile mass Auscultation: normoactive bowel sounds Palpation: soft Back/Spine no CVA tenderness Extremity normal to inspection Extremity Narrative: No asymmetric edema no pitting edema negative Homans' sign bilaterally Neuro oriented x3, CN's II-XII intact bilaterally and no sensory deficits noted Sensorium / Orientation: alert Motor Exam: strength 5/5 throughout Psych Psych Narrative: Patient has a depressed/flat affect Skin no rashes or lesions noted and no wounds Skin Narrative: Skin turgor is increased General Skin Exam: Negative for jaundice or pallor MDM MDM MDM Narrative Medical decision making narrative: Patient arrived to the ER slightly hypertensive otherwise with stable vitals. She reported fatigue with head congestion and cough as well as subjective fevers and chills and therefore temperature diagnosis is for viral infection such as COVID versus influenza versus RSV. There is concern for potential pneumonia or UTI. Secondary to this a viral swab was obtained with basic laboratory studies urine sample and chest x-ray. Chest x-ray revealed no acute lung pathology and blood work and urine sample revealed no clinically significant finding. Viral swab was also negative. However at this time with her report of known sick contacts and her grandchildren as well as fatigue and has congestion this is most likely a viral syndrome. However she is not hypoxic she is not in respiratory distress she is not showing septic changes and therefore there is no need for further workup and he is otherwise safe for discharge History & Record Review Discussion w/independent historian: Patient Lab Data Attestation: I reviewed the patient's lab results. Labs: Laboratory Results - last 24 hr 12/13/23 12/13/23 01:53 02:14 WBC 6.2 RBC 4.30 Hgb 13.0 Hct 39.1 MCV 90.9 MCH 30.2 MCHC 33.2 RDW Std Deviation 44.3 H RDW Coeff of Michelle 13.2 Plt Count 367 MPV 10.1 Immature Gran % (Auto) 0.600 Neut % (Auto) 65.0 Lymph % (Auto) 24.8 Mcdonald % (Auto) 7.3 Eos % (Auto) 1.5 Baso % (Auto) 0.8 Absolute Neuts (auto) 4.0 Absolute Lymphs (auto) 1.53 Nucleated RBC % 0 Sodium 140 Potassium 3.4 L Chloride 108 H Carbon Dioxide 25.0 Anion Gap 7 BUN 21 H Creatinine 0.90 Estim Creat Clear Calc 58.76 Est GFR (MDRD) Af Amer 81 Est GFR (MDRD) Non-Af 67 BUN/Creatinine Ratio 23.3 H Glucose 109 H Calcium 9.0 Urine Color Yellow Urine Clarity Clear Urine pH 7.0 Ur Specific Mathis 1.010 Urine Protein Negative Urine Glucose (UA) Normal Urine Ketones Negative Urine Occult Blood 10 H Urine Nitrite Negative Urine Bilirubin Negative Urine Urobilinogen Normal Ur Leukocyte Esterase Negative Urine RBC 0-5 SEEN Urine WBC 0 SEEN Ur Squamous Epith Cells 0-5 SEEN Urine Bacteria 0 SEEN Urine Mucus 0 SEEN Radiography Diagnostic Testing: Clinical Impression(s) from Imaging Studies Chest X-Ray 12/13/23 01:37 IMPRESSION: Chest with no acute disease. Electronically Signed: Mendez Terrell MD at 4:05 EDT , Chest x-ray as interpreted by the emergency medicine physician reveals no acute infiltrate pneumothorax or pleural effusion Discharge Plan Triage Chief Complaint: General Illness ED Provider: Jose David Osborn Dx/Rx/DC Orders Clinical Impression: Viral syndrome, GERD (gastroesophageal reflux disease), Depression Instructions: ED Viral Syndrome (Adult) Prescriptions: No Action fluoxetine 20 mg capsule 20 mg PO BID Patient Comments: Stand Alone Forms: ED Work / School Excuse Primary Care Provider: Nicki Dickens NP Referrals: Nicki Dickens NP, ELECTRIC ENGINE MECHANIC-C [Primary Care Provider] - Print Language: [place] Disposition Disposition: Home, Self Care Discharge Date/Time: 12/13/23 04:14
[2023-12-13 02:20] VITALS: BP 132/89; PULSE 70; RESP 16; TEMP 36.5; O2SAT 98
[2023-12-13 02:20] LABS: Bacteria 0 SEEN /hpf (None Seen); Mucous, Urine 0 SEEN /hpf (<or=2+); White Blood Cells 0 SEEN /hpf (0-5)
[2023-12-13 02:22] LABS: Absolute Lymphocyte Count 1.53 X10^3/uL (0.83-4.51); Basophil# 0.05 X10^3/uL; Basophil% 0.8 % (0-1); Eosinophil# 0.09 X10^3/uL; Eosinophils% 1.5 % (0-5); Hematocrit 39.1 % (37-47); Lymphocyte # 1.53 X10^3/ul (0.83-4.51); Lymphocyte % 24.8 % (19-41); Mean Corp Hgb Conc 33.2 g/dL (32-36); Mean Corpuscular Hgb 30.2 pg (27.0-32.0); Mean Corpuscular Volume 90.9 fL (81-99); Mean Platelet Vol. 10.1 fl (6.2-12.0); Monocyte# 0.45 X10^3/uL; Monocyte% 7.3 % (0-10); NRBC Flagged by Analyzer 0 % (0-5); Neutrophil # 4.01 X10^3/uL (2.7-7.7); Platelet Count 367 K/mm3 (150-450); RBC Distribution Width CV 13.2 % (11.6-14.6); RBC Distribution Width SD 44.3 fl (35.1-43.9); White Blood Count 6.2 K/mm3 (4.4-11.0)
[2023-12-13 02:23] LABS: Color, Urine Yellow (Yellow); Glucose, Dipstick Normal (Normal); Ketone-Dipstick Negative (Negative); Leukocyte Esterase-Dipstick Negative /ul (Negative); Nitrite-Dipstick Negative (Negative); Occult Blood-Urine 10 /ul (Negative); Protein-Dipstick Negative (Negative); Urine Bilirubin Dipstick Negative (Negative); Urine Clarity Clear (Clear); Urine Urobilinogen Normal (Normal)
[2023-12-13 02:36] LABS: Anion Gap 7 (5-15); BUN 21 mg/dL (7-18); BUN/Creat Ratio 23.3 RATIO (10-20); Chloride 108 mmol/L (98-107); EST Glomerular Filtration Rate 67 mL/min (>60); Est Glom Filt Rate - Afr Amer 81 mL/min (>60); Estimated Creatinine Clearance 58.76 ml/min; Glucose 109 mg/dL (74-106); Potassium 3.4 mmol/L (3.5-5.1); Sodium Level 140 mmol/L (136-145)
[2023-12-13 02:40] LABS: Red Blood Cells-Urine 0-5 SEEN /hpf (0-5); Squamous Epithelial Cells - UA 0-5 SEEN /hpf (5-10)
[2023-12-13 03:00] VITALS: BP 120/91; PULSE 75; RESP 16; TEMP 36.7
[2023-12-13 04:00] VITALS: BP 127/75; PULSE 60; RESP 16; TEMP 37.1; O2SAT 97
[2023-12-13 04:07] VITALS: BP 125/75; PULSE 60; RESP 16; TEMP 36.9; O2SAT 98
== END 2023-12-13 04:14 | disposition home or self-care (01) ==
PROVIDERS: Emergency Provider Emergency Medicine; PCP Nurse Practitioner Adult Health; Visit Provider Emergency Medicine
DX: B34.9 Viral infection, unspecified (principal); Z11.52 Encounter for screening for COVID-19; R05.9 Cough, unspecified; R51.9 Headache, unspecified; K21.9 Gastro-esophageal reflux disease without esophagitis; F32.A Depression, unspecified; Z79.899 Other long term (current) drug therapy
CPT/HCPCS: 71046; 80048; 81001; 85025; 87631; 96361; 96374; 96375; 99283; J7030; A4216